=== PATIENT | male | born 1950 | race Caucasian/White ===

== ENCOUNTER → 2017-06-04 | Outpatient (CLI) | payer MEDICARE, OTHER ==
[2017-06-04 09:22] LABS: Blood Urea Nitrogen 19 mg/dL (9-20); Non-African American GFR(MDRD) 55 (>60 ml/min/1.73 sqM)
--- NOTE | 2017-06-04 12:23 | CT ---
EXAMINATION TYPE: CT pelvis w con DATE OF EXAM: 06/04/2017 COMPARISON: NONE INDICATION: Prostate CA DLP: 1090.7 mGycm, Automated exposure control for dose reduction was used. CONTRAST: 80 mL of Visipaque 320. Study performed with Oral Contrast TECHNIQUE: Axial images were obtained from above the iliac crest to the pubic rami FINDINGS: CT PELVIS: Within the [id number] at the inferior pole of the right kidney is a peripelvic cyst. This measures 3.7 cm 11 Hounsfield units. Vascular calcifications within the abdominal aorta. Inferior vena cava is normal. There is some small fusiform prominence of the mid to distal aorta measuring 2.8 cm AP dimension. Loops of bowel within the abdomen and pelvis are normal. There are loops of bowel which are incom pletely distended or lack oral contrast limiting their evaluation. There is made of some diverticular changes without acute diverticulitis within the noncontrast distended sigmoid colon. Appendix: Normal as visualized. Urinary bladder: Normal. Genitourinary structures: Prostate is unremarkable Osseous structures: No suspicious lytic or sclerotic lesions. Facet changes are present. IMPRESSIONS: 1. Diverticulosis without acute diverticulitis. 2. No suspicious pelvic adenopathy. No metastatic lesions within the [id number].
--- NOTE | 2017-06-04 14:46 | NM ---
EXAMINATION TYPE: NM bone scan whole body DATE OF EXAM: 06/04/2017 COMPARISON: NONE HISTORY: Prostate cancer Delayed whole-body scanning was performed following the injection of 28.2 mCi Tc 99m MDP. Images wer e acquired 4 hours post injection. FINDINGS: No suspicious focal uptake is evident. Some degenerative changes are noted at joint spaces including bilateral knees right distal first and second digit and at the elbows and shoulders. IMPRESSION: 1. Degenerative joint changes. No acute osseous abnormality apparent.
== END | disposition home or self-care (01) ==
LOC: RADCTMAIN 08:39
PROVIDERS: ATTEND Urology
DX: C61 Malignant neoplasm of prostate (principal); K57.30 Diverticulosis of large intestine without perforation or abscess without bleeding
CPT/HCPCS: 82565; 84520; 72193; 36415; 78306; A9503; Q9967

== ENCOUNTER 2017-11-26 04:56 | Inpatient (IN) | payer MEDICARE, OTHER ==
[2017-11-26 05:54] LABS: Basophils % (A) 0 %; Eosinophils # (A) 0.1 k/uL (0-0.7); Eosinophils % (A) 1 %; HGB 15.7 gm/dL (13.0-17.5); Lymphocytes # (A) 0.8 k/uL (1.0-4.8); Lymphocytes % (A) 6 %; MCH 32.5 pg (25.0-35.0); MCHC 35.7 g/dL (31.0-37.0); Monocytes # (A) 0.6 k/uL (0-1.0); Monocytes % (A) 5 %; Neutrophils # (A) 10.9 k/uL (1.3-7.7); Neutrophils % (A) 88 %; Platelet Count 375 k/uL (150-450); RBC 4.83 m/uL (4.30-5.90); RDW 14.3 % (11.5-15.5); WBC 12.4 k/uL (3.8-10.6)
[2017-11-26 06:05] LABS: Calcium 10.1 mg/dL (8.4-10.2)
--- NOTE | 2017-11-26 06:44 | ED ---
Psych HPI - General Source: patient Mode of arrival: ambulatory - History of Present Illness MD Complaint: other Onset/Timin -: week(s) Associated Psychiatric Symptoms: depression, homicidal ideation Quality: constant Improves With: none Worsens With: none Associated Symptoms: denies other symptoms <YohannesGabriele ingram - Last Filed: 11/26/17 06:44> <Grant Murcia - Last Filed: 11/26/17 08:58> - General Chief Complaint: Psychiatric Symptoms Stated Complaint: mental health Time Seen by Provider: 11/26/17 05:13 - History of Present Illness Initial Comments: This patient is a 67-year-old man who presents to be evaluated for having homicidal ideation. The patient states that about 3 weeks ago he "fell from Eva with God," and that since that time he has been having repeated thoughts of killing his . Patient describes difficulty with sleeping and loss of appetite associated with this. (Gabriele Buchanan) - Related Data Home Medications Medication Instructions Recorded Confirmed Mirabegron [Myrbetriq] 50 mg PO DAILY 11/26/17 11/26/17 Venlafaxine HCl ER [Effexor Xr] 75 mg PO DAILY 11/26/17 11/26/17 Allergies Allergy/AdvReac Type Severity Reaction Status Date / Time No Known Allergies Allergy Verified 11/26/17 07:23 Review of Systems ROS Other: All systems not noted in ROS Statement are negative. Constitutional: Denies: fever, chills, weakness Eyes: Denies: vision change Respiratory: Denies: cough, dyspnea Cardiovascular: Denies: chest pain, edema, syncope Gastrointestinal: Denies: abdominal pain, vomiting, diarrhea Musculoskeletal: Denies: back pain Skin: Denies: rash Neurological: Denies: headache, weakness Psychiatric: Reports: anxiety, homicidal thoughts <Gabriele Buchanan - Last Filed: 11/26/17 06:44> ROS Other: All systems not noted in ROS Statement are negative. <Grant Murcia - Last Filed: 11/26/17 08:58> ROS Statement: Those systems with pertinent positive or pertinent negative responses have been documented in the HPI. Past Medical History Additional Past Medical History / Comment(s): prostate cancer treatment starting 11/29/17. History of Any Multi-Drug Resistant Organisms: None Reported Past Surgical History: Prostate Surgery Additional Past Surgical History / Comment(s): prostate removed Past Psychological History: Anxiety, Depression Smoking Status: Current every day smoker Past Alcohol Use History: None Reported Past Drug Use History: None Reported <Gabriele Buchanan - Last Filed: 11/26/17 06:44> General Exam Limitations: no limitations General appearance: alert, in no apparent distress Head exam: Present: atraumatic, normocephalic Eye exam: Present: normal appearance Respiratory exam: Present: normal lung sounds bilaterally. Absent: respiratory distress, wheezes, rales, rhonchi, stridor Cardiovascular Exam: Present: regular rate, normal rhythm, normal heart sounds. Absent: systolic murmur, diastolic murmur, rubs, gallop GI/Abdominal exam: Present: soft. Absent: distended, tenderness, guarding, rebound, rigid Extremities exam: Present: normal inspection, normal capillary refill. Absent: pedal edema, calf tenderness Neurological exam: Present: alert, oriented X3 Psychiatric exam: Present: flat affect, homicidal ideation. Absent: agitated, anxious, suicidal ideation Skin exam: Present: warm, dry, intact, normal color. Absent: rash <Gabriele Buchanan - Last Filed: 11/26/17 06:44> Vital Signs 11/26/17 04:59 Temperature 97.7 F Pulse Rate 94 Respiratory 18 Rate Blood Pressure 161/86 O2 Sat by Pulse 99 Oximetry Medical Decision Making - Lab Data Result diagrams: 11/26/17 05:45 11/26/17 05:45 <Gabriele Buchanan - Last Filed: 11/26/17 06:44> - Lab Data Result diagrams: 11/26/17 05:45 11/26/17 05:45 <Grant Murcia - Last Filed: 11/26/17 08:58> - Lab Data Lab Results 11/26/17 11/26/17 Range/Units 05:45 05:45 WBC 12.4 H (3.8-10.6) k/uL RBC 4.83 (4.30-5.90) m/uL Hgb 15.7 (13.0-17.5) gm/dL Hct 44.0 (39.0-53.0) % MCV 91.0 (80.0-100.0) fL MCH 32.5 (25.0-35.0) pg MCHC 35.7 (31.0-37.0) g/dL RDW 14.3 (11.5-15.5) % Plt Count 375 (150-450) k/uL Neutrophils % 88 % Lymphocytes % 6 % Monocytes % 5 % Eosinophils % 1 % Basophils % 0 % Neutrophils # 10.9 H (1.3-7.7) k/uL Lymphocytes # 0.8 L (1.0-4.8) k/uL Monocytes # 0.6 (0-1.0) k/uL Eosinophils # 0.1 (0-0.7) k/uL Basophils # 0.0 (0-0.2) k/uL Sodium 140 (137-145) mmol/L Potassium 4.0 (3.5-5.1) mmol/L Chloride 99 (98-107) mmol/L Carbon Dioxide 26 (22-30) mmol/L Anion Gap 15 mmol/L BUN 13 (9-20) mg/dL Creatinine 1.10 (0.66-1.25) mg/dL Est GFR (CKD-EPI)AfAm 81 (>60 ml/min/1.73 sqM) Est GFR (CKD-EPI)NonAf 70 (>60 ml/min/1.73 sqM) Glucose 130 H (74-99) mg/dL Calcium 10.1 (8.4-10.2) mg/dL TSH 1.740 (0.465-4.680) mIU/L Disposition <Gabriele Buchanan - Last Filed: 11/26/17 06:44> Time of Disposition: 08:58 <Grant Murcia - Last Filed: 11/26/17 08:58> Clinical Impression: Depression, Suicidal ideation Disposition: HOME SELF-CARE Condition: Good Referrals: Grant Forrest MD [Primary Care Provider] - 1-2 days
[2017-11-26] MEDS ORDERED: HALOPERIDOL 5 MG TAB PO STA (07:26)
[2017-11-26 08:50] LABS: Amphetamine Screen,Urine Not Detected (NotDetected); Barbiturate Screen,Urine Not Detected (NotDetected); Benzodiazepines Screen,Urine Not Detected (NotDetected); Cocaine Screen,Urine Not Detected (NotDetected); Methadone Screen, Urine Not Detected (NotDetected); Opiate Screen,Urine Not Detected (NotDetected); Oxycodone Screen, Urine Not Detected (NotDetected); Phencyclidine Screen,Urine Not Detected (NotDetected); Tricyclic Antidepressant,Urine Not Detected (NotDetected); Urn Cannabinoid Scrn Not Detected (NotDetected)
[2017-11-26] MEDS ORDERED: MAGNESIUM HYDROXIDE 2,400 MG/10 ML CUP PO PRN (09:09)
[2017-11-26] MEDS ORDERED: MAG HYDROX/AL HYDROX/SIMETH 30 ML CUP PO PRN (09:09)
[2017-11-26] MEDS ORDERED: ACETAMINOPHEN TAB 325 MG TAB PO PRN (09:09)
[2017-11-26] MEDS ORDERED: HALOPERIDOL LACTATE 5 MG/ML 1 ML VIAL IM PRN (09:17)
[2017-11-26] MEDS ORDERED: HALOPERIDOL 5 MG TAB PO PRN (09:17)
[2017-11-26 10:10] LABS: Appearance,Urine Clear (Clear); Bacteria,Urine Rare /hpf; Bilirubin,Urine Negative (Negative); Blood,Urine Trace (Negative); Color,Urine Yellow; Glucose,Urine (UA) Negative (Negative); Hyaline Casts,Urine 3 /lpf (0-2); Ketones,Urine 1+ (Negative); Leukocyte Esterase,Urine Negative (Negative); Mucus,Urine Moderate /hpf; Nitrite,Urine Negative (Negative); PH, Urine 6.5 (5.0-8.0); Protein,Urine Trace (Negative); RBC,Urine 4 /hpf (0-5); Specific Gravity,Urine 1.013 (1.001-1.035); WBC,Urine 1 /hpf (0-5)
[2017-11-26] MEDS: NICOTINE 14MG/24HR PATCH TRANSDERM SCH (10:48)
--- NOTE | 2017-11-26 11:13 | P.HP ---
Psychiatric H&P - . History & Physical: Allergies Allergy/AdvReac Type Severity Reaction Status Date / Time No Known Allergies Allergy Verified 11/26/17 07:23 Vital Signs Temp 98 F 11/26/17 10:14 Pulse 89 11/26/17 10:14 Resp 16 11/26/17 10:14 BP 158/82 11/26/17 10:14 Pulse Ox 98 11/26/17 10:14 Intake & Output 11/25/17 11/26/17 11/26/17 18:59 06:59 18:59 Weight 103.419 kg Laboratory Last Values WBC 12.4 k/uL (3.8-10.6) H 11/26/17 05:45 RBC 4.83 m/uL (4.30-5.90) 11/26/17 05:45 Hgb 15.7 gm/dL (13.0-17.5) 11/26/17 05:45 Hct 44.0 % (39.0-53.0) 11/26/17 05:45 MCV 91.0 fL (80.0-100.0) 11/26/17 05:45 MCH 32.5 pg (25.0-35.0) 11/26/17 05:45 MCHC 35.7 g/dL (31.0-37.0) 11/26/17 05:45 RDW 14.3 % (11.5-15.5) 11/26/17 05:45 Plt Count 375 k/uL (150-450) 11/26/17 05:45 Neutrophils % 88 % 11/26/17 05:45 Lymphocytes % 6 % 11/26/17 05:45 Monocytes % 5 % 11/26/17 05:45 Eosinophils % 1 % 11/26/17 05:45 Basophils % 0 % 11/26/17 05:45 Neutrophils # 10.9 k/uL (1.3-7.7) H 11/26/17 05:45 Lymphocytes # 0.8 k/uL (1.0-4.8) L 11/26/17 05:45 Monocytes # 0.6 k/uL (0-1.0) 11/26/17 05:45 Eosinophils # 0.1 k/uL (0-0.7) 11/26/17 05:45 Basophils # 0.0 k/uL (0-0.2) 11/26/17 05:45 Sodium 140 mmol/L (137-145) 11/26/17 05:45 Potassium 4.0 mmol/L (3.5-5.1) 11/26/17 05:45 Chloride 99 mmol/L (98-107) 11/26/17 05:45 Carbon Dioxide 26 mmol/L (22-30) 11/26/17 05:45 Anion Gap 15 mmol/L 11/26/17 05:45 BUN 13 mg/dL (9-20) 11/26/17 05:45 Creatinine 1.10 mg/dL (0.66-1.25) 11/26/17 05:45 Est GFR (CKD-EPI)AfAm 81 (>60 ml/min/1.73 sqM) 11/26/17 05:45 Est GFR (CKD-EPI)NonAf 70 (>60 ml/min/1.73 sqM) 11/26/17 05:45 Glucose 130 mg/dL (74-99) H 11/26/17 05:45 Calcium 10.1 mg/dL (8.4-10.2) 11/26/17 05:45 TSH 1.740 mIU/L (0.465-4.680) 11/26/17 05:45 Urine Color Yellow 11/26/17 09:25 Urine Appearance Clear (Clear) 11/26/17 09:25 Urine pH 6.5 (5.0-8.0) 11/26/17 09:25 Ur Specific [place] 1.013 (1.001-1.035) 11/26/17 09:25 Urine Protein Trace (Negative) H 11/26/17 09:25 Urine Glucose (UA) Negative (Negative) 11/26/17 09:25 Urine Ketones 1+ (Negative) H 11/26/17 09:25 Urine Blood Trace (Negative) H 11/26/17 09:25 Urine Nitrite Negative (Negative) 11/26/17 09:25 Urine Bilirubin Negative (Negative) 11/26/17 09:25 Urine Urobilinogen 3.0 mg/dL (<2.0) 11/26/17 09:25 Ur Leukocyte Esterase Negative (Negative) 11/26/17 09:25 Urine RBC 4 /hpf (0-5) 11/26/17 09:25 Urine WBC 1 /hpf (0-5) 11/26/17 09:25 Urine Bacteria Rare /hpf (None) H 11/26/17 09:25 Hyaline Casts 3 /lpf (0-2) H 11/26/17 09:25 Urine Mucus Moderate /hpf (None) H 11/26/17 09:25 Urine Opiates Screen Not Detected (NotDetected) 11/26/17 08:27 Ur Oxycodone Screen Not Detected (NotDetected) 11/26/17 08:27 Urine Methadone Screen Not Detected (NotDetected) 11/26/17 08:27 Ur Propoxyphene Screen Not Detected (NotDetected) 11/26/17 08:27 Ur Barbiturates Screen Not Detected (NotDetected) 11/26/17 08:27 U Tricyclic Antidepress Not Detected (NotDetected) 11/26/17 08:27 Ur Phencyclidine Scrn Not Detected (NotDetected) 11/26/17 08:27 Ur Amphetamines Screen Not Detected (NotDetected) 11/26/17 08:27 U Methamphetamines Scrn Not Detected (NotDetected) 11/26/17 08:27 U Benzodiazepines Scrn Not Detected (NotDetected) 11/26/17 08:27 Urine Cocaine Screen Not Detected (NotDetected) 11/26/17 08:27 U Marijuana (THC) Screen Not Detected (NotDetected) 11/26/17 08:27 11/26/17 11:01 IDENTIFYING DATA: This patient is a 67-year-old male who was admitted to the mental health unit with acute symptoms of psychosis, suicidal and homicidal ideation. HPI: The patient was admitted to the mental health unit stating he had thoughts of killing his . He told me this morning he was going to act on it. Additionally he's been having suicidal thoughts and planned to either hang himself or overdose with medication. Suicidal thoughts have been present for the last 7-10 days. Homicidal ideation began yesterday. I did speak with his however via phone and she indicates even last week he had expressed a thought of harming her. He states he does not want to harm his but continues to have this urge as he is experiencing an auditory hallucination directing suicidal and homicidal ideation. The hallucinations have been present for approximately 7-10 days. He believes he has "fallen from Eva". The auditory hallucination is the devil. He feels depressed hopeless and overwhelmed. He states he has not eaten in 5-6 days and his confirms this. He has been drinking water. His sleep has been erratic. He states he will sleep 2 hours at a time and his energy is quite low. He endorses no hypomanic or manic symptoms. He is endorsing no other specific delusions no ideas of reference. I did speak with the patient's via phone with his permission. She states that he began to act bizarre at the end of October towards the end of their trip in [place]. During the last 2 days he was not eating as much and he was saying "strange things". Upon the return to [place] she states that she told him the holy spirit took his soul. He made other comments that she wouldn't know what the devils like because she doesn't hear him. The patient has been diagnosed with prostate cancer last June he has undergone a prostatectomy. Apparently there was metastasis to lymph nodes and he is scheduled to start radiation at the end of the month. In terms of anxiety symptoms the patient states he's always anxious and has been more severe lately manifesting as panic attacks where he will have shortness of breath heart racing and an impending sense of doom. He states there are no firearms in the home. His states that there is an old hand gun in the house. She is advised to not have firearms in the home. PAST PSYCHIATRIC HISTORY: The patient's second psychiatric admission. The first one was 33 years ago at [facility] for panic and major depression. He states he had no psychosis at that time. He was treated for 2 weeks he believes on lithium. He was released with no follow-up care and he discontinued the lithium. He saw his primary care physician several weeks ago and was started on Effexor XR. This was just titrated to 75 mg daily 1 week ago. He reports no history of suicide attempts and no other trials of psychotropic medication. PMH: Prostate cancer as noted above, overactive bladder treated with Myrbetriq. ALLERGIES: NO KNOWN DRUG ALLERGIES MEDICATIONS: As above CHEMICAL DEPENDENCY HISTORY: He reports no use of alcohol marijuana or any other illicit drugs. He states he's never had any history of abusing those substances. He has never been placed in residential treatment for chemical dependency reasons. FAMILY PSYCHIATRIC HISTORY: None reported, no suicides in the family FAMILY CHEMICAL DEPENDENCY HISTORY: He reports several family members have alcohol use disorder SOCIAL HISTORY: The patient is 67 years old he's been for 45 years she characterizes his marriage as being good. He has 2 children both sons. The patient is a retired dairy cattle farmer. He is a high school education no history of service. Abuse history none reported legal history he states he was arrested for breaking and entering at age 20 and served 2 months in skilled nursing. He is originally from [place], but has resided in [place] for the last 40 years. He resides with his . MENTAL STATUS EXAM: The patient is a male appearing his stated age he has a disheveled appearance he is dressed in hospital attire. He reports a very depressed mood he feels hopeless he has suicidal thoughts. He continues to have thoughts of harming his although he does not want to harm his . He indicates he's been directed to harm himself and her by an auditory hallucination that he believes is the devil. He believes in terms of God he has "fallen from Eva". He is reporting no ideas of reference he is endorsing no thoughts insertion/control. He demonstrates no tangential thinking loose associations or flight of ideas. He described his energy as being low. He does not appear hypomanic or manic. He does have some difficulty retaining information as it is presented to him. He is oriented to person place day month and year. He is able to name the days of the week backwards. He demonstrates no verbal or physical aggressiveness however it was noted he was agitated in the emergency room. He demonstrates no abnormal involuntary movements. Affect appears distraught at times. STRENGTHS/WEAKNESSES: [Strengths: Housing, support from spouse weaknesses: Acute exacerbation of depressive symptoms with psychosis INTELLECTUAL FUNCTIONING: [Average] IMPRESSIONS: [] 1. Psychosis unspecified, rule out major depressive disorder recurrent severe with psychosis, rule out psychosis with an organic etiology versus delirium 2. Prostate cancer status post prostatectomy awaiting radiation treatment for metastasis to lymph nodes PLAN: [The patient has been admitted to the mental health unit he is here voluntarily. We reviewed his presenting symptoms and medication options. We will continue the Effexor XR 75 mg daily I will initiate Risperdal 1 mg at bedtime Ativan 1 mg up to twice daily as needed for anxiety. We will get a CAT scan of his head without contrast as this is new onset of psychosis in a geriatric patient with no identifiable causes of delirium other than history of prostate cancer. He will be seen by internal medicine for routine history and physical exam. Social work will meet with the patient to complete a psychosocial assessment. I spoke at length with the patient's via phone to gain collateral information. We will monitor him for safety we will encourage him to participate in the milieu. Insurer will be ordered as a dietary supplement due to his lack of eating. We will monitor his by mouth intake.
--- NOTE | 2017-11-26 13:03 | CT ---
EXAMINATION TYPE: CT brain wo con DATE OF EXAM: 11/26/2017 COMPARISON: NONE HISTORY: altered mental status CT DLP: 1098.[address] of the brain was performed. The ventricles, basal cisterns and sulci overlying the cerebral convexities demonstrate mild enlargem ent. There is no evidence for intracranial hemorrhage or sulcal effacement. There is decreased attenuation about the periventricular white matter and deep white matter of both c erebral hemispheres, compatible with chronic small vessel ischemia. Differential diagnosis does inclu de demyelination. No mass effects are seen.No midline shift. Osseous calvarium is intact. If symptoms persist consider MRI. IMPRESSION: 1. Age related atrophic and chronic small vessel ischemic change without acute intracranial process s een at this time.
[2017-11-26] MEDS: LORazepam 1 MG TAB PO PRN (16:37)
--- NOTE | 2017-11-26 20:38 | CONS ---
CONSULTATION DATE OF CONSULTATION: 11/26/2017 REASON FOR CONSULTATION: Medical management requested by Dr. Johnson. CONSULTATION: This is a 67-year-old patient of Dr. Forrest who presented to the ER. The patient was having thoughts of killing his and also was having some suicidal thoughts for about a week. It seems that he has also been having some auditory hallucinations directing him for these ideations. It is noted that he felt as if he had fallen from galileo. He has not been eating well, only drinking water, not sleeping well, feels rather disillusioned, has been feeling bizarre from the end of his trip in [place]. He also feels that devils have been taking over. Patient was diagnosed with prostate cancer in June and underwent prostatectomy. The patient is due to start at [facility] radiation treatment shortly. He does feel weak, tired, rundown. Patient has a history of depression previously. The patient has an overactive bladder, for which he uses Myrbetriq. REVIEW OF SYSTEMS: CONSTITUTIONAL: Weak, tired. HEENT: None. RESPIRATORY: Occasional cough. CARDIOVASCULAR: None. GASTROINTESTINAL: None. GENITOURINARY: As above. MUSCULOSKELETAL: None. DERMATOLOGICAL: None. HEMATOLOGICAL: None. LYMPHATICS: None. PSYCHIATRY: As above. NEUROLOGICAL: None. PAST MEDICAL HISTORY: 1. Prostate cancer with prostatectomy. 2. Depression. PAST SURGICAL HISTORY: Prostatectomy. SOCIAL HISTORY: Patient is smoking about half a pack a day, more so. Has smoked for many years. Patient is a retired jones. Lives with his . Denies alcohol. FAMILY HISTORY: Reviewed; noncontributory to presentation. HOME MEDICATIONS: 1. Effexor XR 75 mg p.o. daily. 2. Myrbetriq 50 mg p.o. daily. ALLERGIES: NONE. PHYSICAL EXAMINATION: Temperature 97.2, pulse 89, respiration 16, blood pressure 138/90, pulse ox 99% on room air. GENERAL APPEARANCE: Average build. Sitting up. Somewhat disheveled. EYES: Pupils equal. Conjunctivae normal. HEENT: External appearance of nose and ears normal. Oral cavity normal. NECK: JVD not raised. Mass not palpable. RESPIRATORY: Effort normal. LUNGS: Diminished breath sounds. CARDIOVASCULAR: First and second sounds normal. No edema. ABDOMEN: Soft, nontender. Liver and spleen not palpable. LYMPHATIC: No lymph node palpable in neck or axillae. PSYCHIATRY: Patient is answering questions. More details on psychiatry evaluation. NEUROLOGICAL: Pupils equal. Cranial nerves grossly intact. Power and sensation grossly intact. INVESTIGATIONS: White count 12.4, hemoglobin 15.7, potassium 4.0. Urine drug screen negative. CT scan of the brain shows some age-related atrophic changes. ASSESSMENT: 1. Metastatic prostate cancer with prostatectomy a few months ago. Now patient is due for radiation treatment. 2. Acute insomnia from underlying psychiatric disorder. 3. Psychosis. 4. Depression not otherwise specified. 5. Mild leukocytosis. No evidence of infection currently. 6. Chronic nicotine dependence. Patient is a cigarette smoker. 7. Essential hypertension. PLAN: At this point, we will put the patient on a nicotine patch, start the patient on lisinopril/hydrochlorothiazide. Radiation center is closed on the weekend. Will probably contact them on Wednesday morning. Care was discussed with the patient. Thank you, Dr. Johnson. MMZIYADL / LUCASN: [id number] /
[2017-11-26] MEDS: LISINOPRIL-HCTZ 10-12.5 MG 1 EACH TAB PO SCH (21:00)
[2017-11-26] MEDS: risperiDONE 1 MG TAB PO SCH (21:00)
[2017-11-27] MEDS: NICOTINE 14MG/24HR PATCH TRANSDERM SCH (08:43)
[2017-11-27] MEDS: LISINOPRIL-HCTZ 10-12.5 MG 1 EACH TAB PO SCH (08:46)
[2017-11-27] MEDS ORDERED: VENLAFAXINE HCL ER 75 MG CAP PO SCH (09:00)
--- NOTE | 2017-11-27 11:58 | P.PN ---
Progress Note - Text Progress Note Date: 11/27/17 Patient was seen for a follow-up examination and I'm covering for Dr. Johnson. Patient reports that he is doing better on his medication, he can sleep better, the voices and his guilt feelings are almost gone, and does not want to kill his or anybody else etc. He wants to speak with his compliance engineer about all these things when he gets home. He feels somewhat tired and sleeps a lot since he took the medications. He was counseled about it and it was agreed to decrease the medication tomorrow or day after if he continues to feel tired since he was just started on these medications and had only 1 day of medication so far. He agreed with this. Does not have any other specific adverse effects. This is a white ambulatory male who is poorly combed and unshaven. He is polite friendly and cooperative. He does not show any psychomotor agitation or retardation. His speech is spontaneous relevant and goal-directed. His mood is mildly anxious and affect is somewhat increased in intensity. He denies suicide and homicide thoughts. He denies hallucinations and delusional thinking except about his feeling of falling out of Eva from God and hearing voices of the devil in the past. He is well oriented with adequate memory concentration etc. His insight and judgment appear to be improving. Plan: Continue Effexor and risperidone and other therapies.
[2017-11-27] MEDS ORDERED: SODIUM CHLORIDE 0.9% 500 ML IV ONE (15:34)
[2017-11-27] MEDS ORDERED: SODIUM CHLORIDE 0.9% 1,000 ML IV ONE (15:45)
--- NOTE | 2017-11-27 15:59 | P.PN ---
Progress Note - Text Progress Note Date: 11/27/17 Patient's blood pressure is low and is getting IV fluids to correct it. Hypotension is listed as a rapid adverse effect from Effexor or in the PDR. In view of this I will discontinue Effexor and observing him.
[2017-11-27] MEDS: risperiDONE 1 MG TAB PO SCH (20:21)
[2017-11-27] MEDS: SODIUM CHLORIDE 0.9% 1,000 ML IV SCH (22:52)
[2017-11-28] MEDS: SODIUM CHLORIDE 0.9% 1,000 ML IV SCH (01:32)
[2017-11-28] MEDS: NICOTINE 14MG/24HR PATCH TRANSDERM SCH (08:04)
[2017-11-28 10:02] VITALS: BMI 29.5
[2017-11-28] MEDS: LORazepam 1 MG TAB PO PRN (14:52)
--- NOTE | 2017-11-28 15:59 | P.PN ---
Progress Note - Text Progress Note Date: 11/28/17 Patient was seen for a follow-up examination. He is fully ambulatory today and feels lot better. He does not feel tired. He is attending groups and actively participates. His Effexor was stopped yesterday and he did not get any this morning. His blood pressure is getting better and he can walk freely. His IV fluids were discontinued. This is a white ambulatory male with adequate hygiene. He is polite and cooperative. He does not show any psychomotor agitation or retardation. His speech is spontaneous relevant and goal-directed. His mood is euthymic to cheerful and affect is appropriate to the thought content. He denies suicidal and homicidal ideas. He denies hallucinations and delusional thinking. Apparently his talk to their supply chain specialist about him coming to see the patient here in the unit. Apparently he made some remarks which they did not like and so they're going to attend different quaker and see a different supply chain specialist. He is well oriented with good memory concentration etc. Plan: Continue risperidone, groups and other activities.
[2017-11-28] MEDS: risperiDONE 1 MG TAB PO SCH (20:50)
--- NOTE | 2017-11-29 00:27 | PN ---
PROGRESS NOTE DATE OF SERVICE: 11/28/2017. PRESENTING COMPLAINT: Low blood pressure. INTERVAL HISTORY: This is a patient admitted to the psych unit with psychosis. Blood pressure is running rather low yesterday. I gave the patient a fluid bolus. Overall feeling much better after that. Tolerating a diet, up and about. No dizziness. No lightheadedness. REVIEW OF SYSTEMS: Done for constitutional, cardiovascular, GI, pulmonary; relevant findings as above. CURRENT MEDICATIONS: Reviewed. Given IV fluids and that was discontinued. PHYSICAL EXAMINATION: Temperature 98.8, pulse 83, respirations 16, blood pressure up to 102/66. GENERAL APPEARANCE: Sitting up, comfortable. EYES: Pupils equal. Conjunctivae are normal. HEENT: External appearance of nose and ears normal. Oral cavity normal. NECK: JVD not raised. Mass not palpable. Respiratory effort normal. LUNGS: Decreased breath sounds. CARDIOVASCULAR: First and seconds sounds, no edema. ABDOMEN: Soft, nontender. Liver and spleen not palpable. PSYCHIATRY: Awake, answering simple questions. INVESTIGATIONS: No new blood work today. ASSESSMENT: 1. Hypotension responded to IV fluids. 2. Acute insomnia from underlying psychotic disorder. 3. Psychosis. 4. Depression, not otherwise specified. 5. Chronic nicotine dependence. The patient is an ex-cigarette smoker. PLAN: Continue medication and treatment plan. Hypotension is actually doing better. The patient encouraged to increase oral intake. Radiation will be consulted who are following the patient for prostate radiation. We will also order a PSA for the morning. MMODL / IJN: [id number] /
[2017-11-29] MEDS: NICOTINE 14MG/24HR PATCH TRANSDERM SCH (08:39)
--- NOTE | 2017-11-29 10:00 | P.PN ---
Progress Note - Text Interval history: The patient is found at the front office attendant he follows me to an interview room. He reports he feels much better. He states that he was struggling with an obsessive thought that his spirit had been taken from his body. He reported he was previously hearing the voice of the devil. He states he is no longer hearing that he no longer feels he is having any non-objective thinking. He reports sleeping 8 hours last night. His appetite is improving. He states he is eating whatever he can but he doesn't particular care for the food here. His family did visit over the weekend he felt that went well. It appears his blood pressure had dropped. The covering physician assumed it was the Effexor and discontinued Effexor. The patient however is been on Effexor XR for approximately one to 2 weeks prior to this admission without that side effect. It is more likely that the Risperdal calls the hypotension or the use of Ativan. This did also occur in the context of him not eating for almost a week. We discussed options in terms of antidepressant management and the patient feels comfortable resuming the Effexor XR. Mental status exam: The patient is alert he is a disheveled appearance hygiene is adequate. He is friendly and cooperative he remains seated in the chair calmly. He reports his mood is much improved. He is reporting no suicidal or homicidal ideation intent or plan. He specifically states he has no thoughts or desire to harm his . He is endorsing no auditory or visual hallucinations. He is endorsing no specific delusions today. In particular he reports no confucianism type delusions and he does not feel persecuted. Insight and judgment improving. He demonstrates no verbal or physical aggressiveness. Affect is brighter he demonstrates appropriate use of humor and smiling. He is oriented to person place and date. Plan: The patient's will continue on the Risperdal however we will reduce the dose to 0.5 mg at bedtime. Effexor XR be restarted 75 mg daily. Ativan will be continued as needed. We will monitor for hypotension. He is encouraged to participate in the milieu and we will monitor his by mouth intake. Social work will be in contact with the patient's spouse. We will assess his safety risk daily. He may be appropriate for discharge as soon as one to 2 days depending on his progress. Dr. Pedro Serrato has been following from internal medicine. A PSA has been ordered. Nursing will contact Dr. Richard's office for any further recommendation.
[2017-11-29] MEDS: VENLAFAXINE HCL ER 75 MG CAP PO SCH (10:26)
[2017-11-29] MEDS: LORazepam 1 MG TAB PO PRN ×2 (12:08→20:59)
[2017-11-29] MEDS ORDERED: risperiDONE 0.5 MG TAB PO SCH (21:00)
[2017-11-30 06:09] VITALS: BP 132/79; PULSE 75; RESP 14; TEMP 98.2
[2017-11-30] MEDS: VENLAFAXINE HCL ER 75 MG CAP PO SCH (08:22)
[2017-11-30] MEDS: NICOTINE 14MG/24HR PATCH TRANSDERM SCH (08:22)
--- NOTE | 2017-11-30 09:37 | P.DS ---
Providers Date of admission: 11/26/17 09:03 Expected date of discharge: 11/30/17 Attending physician: Bassam Johnson Consults: 11/26/17 09:09 Consult Physician Routine Consulting Provider: Cory Nguyen Consult Reason/Comments: H&P, with medical followup Do you want consulting provider notified?: Yes Primary care physician: Ryan Forrest - Discharge Diagnosis(es) (1) Psychosis Current Visit: Yes Status: Acute Priority: High (2) Depression Current Visit: Yes Status: Acute Priority: Medium Hospital Course: Brief summary of admission note: This patient is a 67-year-old male who was admitted to the mental health unit through the emergency room with symptoms of psychosis suicidal ideation and homicidal ideation. He had presented stating he had thoughts of killing his although this was not something he wanted to do. He endorsed auditory hallucinations from the devil. He felt that his spirit had been stolen from his body and he had "fallen from Eva". He had gone several days without eating and his sleep had been impaired. For full details please refer to my psychiatric evaluation dated . Summary of hospital course: The patient was admitted to the mental health unit he did sign in voluntarily. We reviewed his presenting symptoms and medication options. He was continued on Effexor XR 75 mg daily Risperdal was initiated 1 mg at bedtime Ativan was used as needed for acute anxiety. In terms of psychotic symptoms those cleared very quickly with use of Risperdal. Over the weekend the covering physician was concerned the Effexor had caused a drop in blood pressure however the patient had arty been on that for approximate 2 weeks. It was more likely that the Risperdal dose had caused a hypotension. The Effexor was restarted and the Risperdal was reduced to 0.5 mg at bedtime. The patient attended groups he demonstrated no agitated behavior he demonstrated significant improvement over the last several days. His visited him over the weekend and indicated to social work that he was much improved. At the time of admission I did have a phone conversation with his to gather collateral information. The patient was seen by internal medicine for routine history and physical exam and further follow-up visits. We did do a CAT scan as this appeared to be new onset psychosis. The CAT scan was negative for any acute process. Mental status exam: The patient is alert he is dressed in his own clothing hygiene grooming are good. Eye contact is appropriate. Speech is fluent and spontaneous nonpressured. He is reporting no suicidal or homicidal ideation intent or plan. Specifically he states he has no thoughts of harming his . Again he clarifies that although he had those thoughts he never wanted to harm his . He is endorsing no auditory or visual hallucinations. He specifically denies experiencing any command auditory hallucinations. He is endorsing no feelings of paranoia or persecution. He feels safe here and he expects he will feel safe at home. He spontaneous states that if he doesn't feel safe he will return to the hospital. He demonstrates no tangential thinking loose associations or flight of ideas. He does not appear hypomanic or manic. He demonstrates no verbal or physical aggressiveness. He demonstrates no abnormal involuntary movements. He continues to be oriented to person place and date. Affect is appropriately expressive and appears more euthymic. Impressions 1. Psychosis and specified, rule out delirium versus major depressive disorder recurrent severe with psychosis 2. Prostate cancer with metastasis to lymph nodes Plan: The patient will be discharged from the mental health unit to return home residing with his today. He will continue on Effexor XR 75 mg daily, Risperdal 0.5 mg at bedtime, Ativan 1 mg up to daily as needed. There is no imminent safety risk he is appropriate for transition back to outpatient care. His symptoms of psychosis have resolved he is endorsing no thoughts of harming himself or others. He is instructed to return to the hospital any acute safety concerns. He will follow-up with his oncology team to proceed with radiation treatment. Social work will arrange his outpatient mental health follow-up. The Risperdal will likely only be needed temporarily but he will continue until he follows with another home therapy clinician. The patient was not utilizing nicotine patches here in the mental health unit. He does not want to have them prescribed to him. He states he will quit smoking "cold turkey". Patient Condition at Discharge: Stable Plan - Discharge Summary Discharge Rx Participant: No New Discharge Prescriptions: New LORazepam [Ativan] 1 mg PO DAILY PRN #10 tab PRN Reason: Anxiety risperiDONE [RisperDAL] 0.5 mg PO HS #30 tab Venlafaxine HCl ER [Effexor XR] 75 mg PO DAILY #30 cap.er.24h Continue Mirabegron [Myrbetriq] 50 mg PO DAILY Discontinued Venlafaxine HCl ER [Effexor Xr] 75 mg PO DAILY Discharge Medication List Mirabegron [Myrbetriq] 50 mg PO DAILY 11/26/17 [History] LORazepam [Ativan] 1 mg PO DAILY PRN #10 tab 11/30/17 [Rx] Venlafaxine HCl ER [Effexor XR] 75 mg PO DAILY #30 cap.er.24h 11/30/17 [Rx] risperiDONE [RisperDAL] 0.5 mg PO HS #30 tab 11/30/17 [Rx] Follow up Appointment(s)/Referral(s): intake,intake [Other] - 12/01/17 11:15 am Grant Forrest MD [Primary Care Provider] - 1-2 days Activity/Diet/Wound Care/Special Instructions: Activity and diet as tolerated. Avoid the use of street drugs and alcohol. Remove all firearms from the home. Take all medications as prescribed. Follow up with you Primary Care provider in 1-2 days. When you are in need of refills on your medications please contact your medical provider and/or outpatient psychiatrist to have this done. Please go to scheduled outpatient appointment for aftercare. If symptoms return or become worse call the crisis line at [phone] and/or go to the nearest emergency room for an evaluation.
== END 2017-11-30 11:30 | disposition home or self-care (01) | DRG 885 ==
LOC: EC 04:56 → 3MHU 09:03
PROVIDERS: ADMIT Psychiatry & Neurology Psychiatry; ATTEND Psychiatry & Neurology Psychiatry
DX: F33.3 Major depressive disorder, recurrent, severe with psychotic symptoms (principal); C77.9 Secondary and unspecified malignant neoplasm of lymph node, unspecified; I95.9 Hypotension, unspecified; R45.851 Suicidal ideations; R63.0 Anorexia; R45.850 Homicidal ideations; N32.81 Overactive bladder; F41.0 Panic disorder [episodic paroxysmal anxiety]; F17.210 Nicotine dependence, cigarettes, uncomplicated; I10 Essential (primary) hypertension; G47.00 Insomnia, unspecified; F29 Unspecified psychosis not due to a substance or known physiological condition; Z85.46 Personal history of malignant neoplasm of prostate; Z90.79 Acquired absence of other genital organ(s); Z79.899 Other long term (current) drug therapy
CPT/HCPCS: 36415; 70450; 80048; 80306; 81001; 82075; 84153; 84443; 85025; 99285

== ENCOUNTER → 2017-12-28 | Outpatient (CLI) | payer MEDICARE, OTHER ==
--- NOTE | 2017-12-28 15:59 | CT ---
EXAMINATION TYPE: CT pelvis w con DATE OF EXAM: 12/28/2017 COMPARISON: CT pelvis June 04, 2017 HISTORY: Follow up prostate cancer CT DLP: 1034.5 mGycm Automated exposure control for dose reduction was used. CONTRAST: Performed with IV Contrast, patient injected with 100 mL of Isovue 300. FINDINGS: Prostate is not visualized and suspected surgically absent though no distinct surgical clips are note d. No new suspicious pelvic adenopathy is seen. There are prominent but subcentimeter bilateral groin lymph nodes redemonstrated. There is no suspicious small or large bowel dilatation. Normal-appearing appendix is seen from cecum right upper pelvis There is redemonstration of oval 3.6 cm low dense lesion lower pole level right ki dney favoring simple cyst on axial image 4 series 3. There is moderate to severe calcified plaque in distal bowel aorta extending into pelvic branch vessels. Visualized osseous structures are intact. Fa cet arthropathy lower lumbar levels is redemonstrated. No suspicious focal lytic or sclerotic lesions are present. No pelvic fluid is noted. IMPRESSION: NO NEW SUSPICIOUS MASS OR ADENOPATHY IS SEEN TO SUGGEST MALIGNANT RECURRENCE.
== END | disposition home or self-care (01) ==
LOC: RADCTMAIN 13:13
PROVIDERS: ATTEND Radiology Radiation Oncology
DX: C61 Malignant neoplasm of prostate (principal)
CPT/HCPCS: 82565; 84520; 72193; Q9967

== ENCOUNTER → 2018-02-11 | Outpatient (CLI) | payer MEDICARE, OTHER | END | disposition home or self-care (01) | LOC: LABWHC1 11:07 | PROVIDERS: ATTEND Radiology Radiation Oncology | DX: C61 Malignant neoplasm of prostate (principal) | CPT/HCPCS: 36415; 84153 ==

== ENCOUNTER 2018-09-22 08:20 | Day surgery (SDC) | payer MEDICARE, OTHER ==
[2018-09-20 12:32] VITALS: BMI 35.4
[~2018-09-22 08:20] MED LIST: LACTATED RINGERS 1,000 ML IV SCH; LIDOCAINE 1% 20 ML VIAL (10MG/ML) FOR IV START INTRADERMA PRN
[2018-09-22 09:02] VITALS: RESP 16; TEMP 97.4
[2018-09-22] MEDS ORDERED: PROPOFOL 10 MG/ML 20 ML VIAL IV ONE (09:47)
[2018-09-22] MEDS ORDERED: LIDOCAINE 1% INJ 10MG/ML (20 ML MDV) ONE (09:47)
--- NOTE | 2018-09-22 10:23 | P.PCN ---
Date of Procedure: 09/22/18 Procedure(s) Performed: Procedure: Colonoscopy and biopsy. Preoperative diagnosis: Screening or neoplasia. Postoperative diagnosis: 1. Poor preparation with no obvious large polyps or cancer. 2. Small flat polyp in the proximal sigmoid biopsied but was not snared because of his poor prep. 3. No large polyps or cancer. Preparation: HalfLytely prep. Sedation: Was provided by anesthesia. Brief clinical history: The patient is a 68-year-old male who is scheduled for this evaluation for screening for neoplasia age being his risk factor. He had history of prostate cancer and he had surgery and radiation treatment last year. The patient has no overt bleeding but, apparently, had a positive cologuard test. No family history of colon cancer. This would be his first colonoscopy. Procedure: With the patient on his left lateral decubitus position and after informed consent and adequate sedation, the perianal area was inspected and it did not show any fissures or fistulas. There were no masses felt on digital rectal examination. The Olympus CFH 190L video colonoscope was then inserted in the rectum in the usual fashion and advanced to the cecum. The preparation, unfortunately, was poor and things did not clear despite lengthy cleansing which I performed. There was an elongated small flat polypoid area in the proximal sigmoid consistent with a benign polyp which I biopsied but there were no large polyps or cancer or any spontaneous bleeding or obvious diverticular disease. I retroflexed the endoscope in the rectum before the endoscope was withdrawn. The patient tolerated the procedure well. Plan: The patient was briefed about the findings of this exam. Will await pathology results. I anticipate repeating this exam in around 2 years after a 2 day prep. Sooner depending on the pathology results. He will follow up with you as planned.
[2018-09-22 10:32] VITALS: BP 143/72; PULSE 66
== END 2018-09-22 11:06 | disposition home or self-care (01) ==
LOC: ORWHC2ENDO 08:20
DX: Z12.11 Encounter for screening for malignant neoplasm of colon (principal); D12.5 Benign neoplasm of sigmoid colon; F41.9 Anxiety disorder, unspecified; F32.9 Major depressive disorder, single episode, unspecified; Z85.46 Personal history of malignant neoplasm of prostate; Z87.891 Personal history of nicotine dependence; Z79.82 Long term (current) use of aspirin; Z79.899 Other long term (current) drug therapy; Z90.79 Acquired absence of other genital organ(s); Z92.3 Personal history of irradiation
CPT/HCPCS: 88305; 45380; J2001; J2704

== ENCOUNTER → 2019-01-24 | Outpatient (CLI) | payer MEDICARE, OTHER | END | disposition home or self-care (01) | LOC: LABWHC1 10:38 | PROVIDERS: ATTEND Urology | DX: C61 Malignant neoplasm of prostate (principal); M81.8 Other osteoporosis without current pathological fracture | CPT/HCPCS: 36415; 82310; 84153; 84403 ==

== ENCOUNTER → 2019-11-14 | Outpatient (CLI) | payer MEDICARE, OTHER ==
[2019-11-14 15:45] LABS: Potassium 4.5 mmol/L (3.5-5.1)
[2019-11-14 17:22] LABS: Basophils % (A) 1 %; Eosinophils # (A) 0.1 k/uL (0-0.7); Eosinophils % (A) 1 %; HGB 13.4 gm/dL (13.0-17.5); Lymphocytes # (A) 0.8 k/uL (1.0-4.8); Lymphocytes % (A) 14 %; MCH 32.8 pg (25.0-35.0); MCHC 32.7 g/dL (31.0-37.0); MCV 100.2 fL (80.0-100.0); Macrocytosis Slight; Mean Platelet Volume 8.1; Monocytes # (A) 0.4 k/uL (0-1.0); Monocytes % (A) 7 %; Neutrophils # (A) 4.4 k/uL (1.3-7.7); Neutrophils % (A) 75 %; Platelet Count 288 k/uL (150-450); RBC 4.09 m/uL (4.30-5.90); RDW 14.2 % (11.5-15.5); WBC 5.8 k/uL (3.8-10.6)
== END | disposition home or self-care (01) ==
LOC: LABPAT 14:28
PROVIDERS: ATTEND Surgery
DX: Z01.812 Encounter for preprocedural laboratory examination (principal); I74.3 Embolism and thrombosis of arteries of the lower extremities; I73.9 Peripheral vascular disease, unspecified
CPT/HCPCS: 36415; 80051; 82565; 82947; 85025

== ENCOUNTER 2019-11-21 06:02 | Day surgery (SDC) | payer MEDICARE, OTHER ==
[~2019-11-21 06:02] MED LIST changes: +ALPRAZolam 0.25 MG TAB PO PRN; +ALPRAZolam 0.5 MG TAB PO PRN; -LACTATED RINGERS 1,000 ML IV SCH; -LIDOCAINE 1% 20 ML VIAL (10MG/ML) FOR IV START INTRADERMA PRN; +SODIUM CHLORIDE 0.9% 1,000 ML in EMPTY BAG 1 BAG IV ONE
[2019-11-21 06:27] VITALS: TEMP 97.9
[2019-11-21 06:28] VITALS: RESP 16
[2019-11-21] MEDS ORDERED: ASPIRIN 325 MG TAB PO ONE (07:00)
[2019-11-21] MEDS ORDERED: LIDOCAINE 1% INJ 10MG/ML (20 ML MDV) SQ ONE (07:41)
[2019-11-21] MEDS ORDERED: MIDAZOLAM 2 MG/2 ML VIAL IV ONE (07:45)
[2019-11-21] MEDS ORDERED: IOPAMIDOL-250 100ML BTL INTRAARTER ONE (08:10)
--- NOTE | 2019-11-21 08:53 | IR ---
EXAMINATION TYPE: IR angio abdominal w runoff DATE OF EXAM: 11/21/2019 CLINICAL HISTORY: Peripheral vascular disease. TECHNIQUE: Fluoroscopy. COMPARISON: None. FINDINGS: Fluoroscopic guidance was provided during abdominal angiogram with lower extremity runoff procedure performed by Dr. Zamora. A total of 1.3 minute of fluoroscopic time was utilized during t he procedure and two cine runs are acquired. Images acquired show access via left groin with subseque nt abdominal angiogram and lower extremity runoff images saved. Please refer to procedure note for fu rther details if necessary as I was not present nor performed procedure. IMPRESSION: As Above.
[2019-11-21 10:13] VITALS: BP 153/70; PULSE 63
--- NOTE | 2019-11-21 10:15 | P.OP ---
Date of Procedure: 11/21/19 Indications for Procedure: 69-year-old gentleman with history of bilateral lower extremity claudication resented to the office with significant increase in pain consistent of worsening claudication. Patient states he is unable to walk more than 50 feet without significant pain and cramping of his calf on the right which is worse than the left. He underwent arterial Dopplers which demonstrated a markedly decrease in ABIs on the right lower extremity from 0.8 to .6 and therefore he presents today for aortogram with runoff. Description of Procedure: Preoperative diagnosis: Disabling claudication bilateral lower extremities [place] classification 3 Postop diagnosis: Disabling claudication [place] classification 3, bilateral SFA BRIM BUSTER's, infrarenal abdominal aortic aneurysm Procedure: Aortogram with bilateral lower extremity runoffs via left common femoral artery access under ultrasound guidance Surgeon: Noah Anesthesia: Moderate sedation times 20 minutes Estimated blood loss: 5 mL Complications: None Condition: Stable Findings: Aorta: Mild atherosclerotic disease with dilation consistent of a small aneurysm. Bilateral renal arteries were patent without any significant disease. Iliacs: Bilateral common iliac arteries were patent without significant athe rosclerotic disease and no evidence of severe stenosis. External iliac artery on the right demonstrated some mild stenosis approximately 20-30%. Left external iliac artery was patent with mild atherosclerotic disease. Bilateral internal iliac arteries are patent without any significant stenosis. Femorals: Bilateral common femoral arteries, profundus femoris arteries are patent with mild atherosclerotic disease no evidence of stenosis. Bilateral superficial femoral arteries are occluded after the takeoff and reconstitute at the above-knee popliteal just distal to Eren's canal. There is significant calcification noted throughout the bilateral superficial femoral arteries. Popliteal: Bilateral popliteal arteries are patent with mild atherosclerotic and calcific disease. There is no evidence of stenosis. Tibials: Bilateral tibioperoneal trunks are patent with mild atherosclerotic disease. Three-vessel takeoff bilaterally with two-vessel runoff to the ankle bilaterally. Operative narrative: After written informed consent was obtained the patient all risks benefits competitions were described the patient is brought to the Taxicab Driver and laid in a supine position. The area of the groin was prepped and draped in the usual sterile fashion. Local anesthesia with moderate sedation was performed with continuous pulse ox monitoring and EKG monitoring. Utilizing ultrasound the left common femoral artery was visualized and shown to be patent without any significant plaque. Utilizing a multipurpose needle under ultrasound guidance the artery was accessed. Guidewire was placed followed by 5-Syriac sheath. 035 Glidewire was then placed into the aorta followed by pigtail catheter. Angiogram was then obtained of the aorta. Catheter was then placed at the bifurcation and lower extremity runoffs were obtained. Once completed all guidewires, catheters and sheaths were removed and pressure was placed for hemostasis. Patient tolerated procedure well was sent to PACU for re covery Plan - Discharge Summary Discharge Rx Participant: No New Discharge Prescriptions: No Action RX: LORazepam [Ativan] 1 mg PO DAILY PRN #10 tab PRN Reason: Anxiety Aspirin EC [Ecotrin Low Dose] 81 mg PO DAILY risperiDONE [RisperDAL] 0.5 mg PO HS Venlafaxine HCl [Effexor] 75 mg PO HS Atorvastatin [Lipitor] 40 mg PO HS Discharge Medication List RX: LORazepam [Ativan] 1 mg PO DAILY PRN #10 tab 11/30/17 [Rx] Aspirin EC [Ecotrin Low Dose] 81 mg PO DAILY 09/20/18 [History] Atorvastatin [Lipitor] 40 mg PO HS 11/20/19 [History] Venlafaxine HCl [Effexor] 75 mg PO HS 11/20/19 [History] risperiDONE [RisperDAL] 0.5 mg PO HS 11/20/19 [History] Follow up Appointment(s)/Referral(s): Gabriele Zamora DO [STAFF PHYSICIAN] - 11/28/19 3:30 pm Patient Instructions/Handouts: Angiogram (DC) Activity/Diet/Wound Care/Special Instructions: No heavy lifting/pushing/pulling greater than 10 lbs for 3 days. Avoid frequent up/down full flight of stairs for 2 days. You may shower tomorrow, but no soaking in water for 3 days (such as swim or tub). You may drive Thurs.
== END 2019-11-21 12:20 | disposition home or self-care (01) ==
LOC: CATHCVL 06:02
PROVIDERS: ATTEND Surgery
DX: I70.213 Atherosclerosis of native arteries of extremities with intermittent claudication, bilateral legs (principal); I71.4 Abdominal aortic aneurysm, without rupture; I70.0 Atherosclerosis of aorta; I70.8 Atherosclerosis of other arteries; C61 Malignant neoplasm of prostate; Z79.82 Long term (current) use of aspirin; Z98.890 Other specified postprocedural states; Z87.891 Personal history of nicotine dependence; Z82.49 Family history of ischemic heart disease and other diseases of the circulatory system
CPT/HCPCS: 36200; 75625; 75716; C1769 ×3; C1894; J2250; J2001; Q9966

== ENCOUNTER → 2020-04-19 | Outpatient (CLI) | payer MEDICARE, OTHER | END | disposition home or self-care (01) | LOC: LABWHC1 11:44 | PROVIDERS: ATTEND Radiology Radiation Oncology | DX: C61 Malignant neoplasm of prostate (principal); Z92.3 Personal history of irradiation; C77.9 Secondary and unspecified malignant neoplasm of lymph node, unspecified | CPT/HCPCS: 36415; 84153 ==

== ENCOUNTER → 2020-04-30 | Day surgery (SDC) | payer MEDICARE, OTHER ==
[2020-04-23 10:04] VITALS: BMI 34.9
[~2020-04-30] MED LIST changes: -ALPRAZolam 0.25 MG TAB PO PRN; -ALPRAZolam 0.5 MG TAB PO PRN; +IOPAMIDOL-250 100ML BTL INTRAARTER ONE; +LIDOCAINE 1% INJ 10MG/ML (20 ML MDV) SQ ONE; +PROTAMINE SULFATE 10 MG/ML 5 ML VIAL IV ONE
[2020-04-30 08:19] VITALS: TEMP 97.8
[2020-04-30 08:27] LABS: Basophils % (A) 0 %; Eosinophils # (A) 0.1 k/uL (0-0.7); Eosinophils % (A) 2 %; HCT 40.3 % (39.0-53.0); HGB 13.3 gm/dL (13.0-17.5); Lymphocytes # (A) 0.9 k/uL (1.0-4.8); Lymphocytes % (A) 13 %; MCH 32.8 pg (25.0-35.0); MCHC 33.1 g/dL (31.0-37.0); MCV 99.1 fL (80.0-100.0); Macrocytosis Slight; Mean Platelet Volume 7.7; Monocytes # (A) 0.4 k/uL (0-1.0); Monocytes % (A) 7 %; Neutrophils % (A) 75 %; Platelet Count 330 k/uL (150-450); RBC 4.07 m/uL (4.30-5.90); RDW 14.6 % (11.5-15.5); WBC 6.7 k/uL (3.8-10.6)
[2020-04-30 08:35] LABS: Calcium 9.3 mg/dL (8.4-10.2); Potassium 4.9 mmol/L (3.5-5.1)
[2020-04-30] MEDS: fentaNYL (PF) 50 MCG/ML 2 ML AMP IV ONE ×3 (08:45→09:42)
[2020-04-30] MEDS: MIDAZOLAM 2 MG/2 ML VIAL IV ONE ×2 (08:45→08:51)
--- NOTE | 2020-04-30 10:36 | P.OP ---
Date of Procedure: 04/30/20 Preoperative Diagnosis: Right lower extremity claudication with SFA occlusion Postoperative Diagnosis: Same Procedure(s) Performed: 1. Ultrasound-guided left common femoral artery access 2. Selective right lower extremity iliofemoral, femoral-popliteal angiograms 3. Failed attempt to revascularize right SFA occlusion Anesthesia: local, other (Conscious sedation 75 minutes) Surgeon: Gabriele Zamora Estimated Blood Loss (ml): 5 Pathology: none sent Condition: stable Disposition: other (outpatient) Indications for Procedure: 69-year-old with history of bilateral lower extremity claudication at 50 feet presents to the hospital for revascularization of the right lower extremity. Previously he underwent aortogram with runoff demonstrating chronic total occlusion of the right superficial femoral artery with reconstitution of the above-knee popliteal. There is dense calcification on the angiogram and when discussed with the patient options including bypass versus atherectomy and angioplasty with possible stenting he chose the latter. He presents today for his intervention. Operative Findings: Densely calcified chronic total occlusion of the SFA just after the takeoff with above-knee reconstitution Description of Procedure: After written informed consent was obtained the patient all risks benefits competitions were described the patient is brought to the Solutions Architect Consultant and laid in a supine position. The area of the groins were prepped and draped in usual sterile fashion. Seizure was performed under conscious sedation which was administered per the registered nurse and continued pulse ox and EKG monitoring was performed. Utilizing ultrasound the left common femoral artery was visualized shown to have some calcification but otherwise patent. Utilizing ultrasound and a multipurpose needle as well as Seldinger technique a 6-Spanish sheath was placed in normal fashion. 035 Glidewire was then placed into the aorta followed by a rim catheter and the right common iliac and common femoral artery were accessed with the 035 wire advantage. A 7-Spanish up and over sheath was then placed into the common femoral artery on the right. Right lower extremity iliofemoral and femoral-popliteal selective angiograms were performed to map out the chronic total occlusion. Multiple catheters and wires were then utilized after patient was administered heparin and followed with ACTs with attempt to cross the lesion. Due to the highly dense calcification at the distal aspect of the lesion were unable to cross after utilizing a quick cross catheter, astato wire, gold tip wire. At that time the stop the procedure and patient will follow-up in the office to discuss bypass option as well as potential retrograde pedal access. Plan - Discharge Summary Discharge Rx Participant: No New Discharge Prescriptions: No Action RX: LORazepam [Ativan] 1 mg PO DAILY PRN #10 tab PRN Reason: Anxiety Aspirin EC [Ecotrin Low Dose] 81 mg PO DAILY risperiDONE [RisperDAL] 0.5 mg PO HS Venlafaxine HCl [Effexor] 75 mg PO HS Atorvastatin [Lipitor] 40 mg PO HS Discharge Medication List RX: LORazepam [Ativan] 1 mg PO DAILY PRN #10 tab 11/30/17 [Rx] Aspirin EC [Ecotrin Low Dose] 81 mg PO DAILY 09/20/18 [History] Atorvastatin [Lipitor] 40 mg PO HS 11/20/19 [History] Venlafaxine HCl [Effexor] 75 mg PO HS 11/20/19 [History] risperiDONE [RisperDAL] 0.5 mg PO HS 11/20/19 [History] Follow up Appointment(s)/Referral(s): Gabriele Zamora DO [STAFF PHYSICIAN] - 2 Weeks Discharge Disposition: HOME SELF-CARE
--- NOTE | 2020-04-30 10:41 | IR ---
EXAMINATION TYPE: IR angio extremity LT DATE OF EXAM: 04/30/2020 CLINICAL HISTORY: Peripheral arterial disease. TECHNIQUE: Fluoroscopy. COMPARISON: None. FINDINGS: Fluoroscopic guidance was provided during lower extremity angiogram procedure performed by Dr. Zamora. A total of 31 minutes of fluoroscopic time was utilized during the procedure at least 7 images are acquired. Please refer to procedure note for further details as I was not present nor performed procedure. IMPRESSION: As Above.
[2020-04-30 11:07] VITALS: RESP 16
[2020-04-30 14:15] VITALS: BP 152/70; PULSE 60
== END | disposition home or self-care (01) ==
LOC: CATHCVL 07:56
PROVIDERS: ATTEND Surgery
DX: I70.213 Atherosclerosis of native arteries of extremities with intermittent claudication, bilateral legs (principal); I70.92 Chronic total occlusion of artery of the extremities; Z87.891 Personal history of nicotine dependence; Z83.438 Family history of other disorder of lipoprotein metabolism and other lipidemia; Z85.46 Personal history of malignant neoplasm of prostate; Z90.79 Acquired absence of other genital organ(s); Z82.49 Family history of ischemic heart disease and other diseases of the circulatory system; Z79.82 Long term (current) use of aspirin; Z79.899 Other long term (current) drug therapy
CPT/HCPCS: 37224; 80048; 85025; C1894 ×2; C1769 ×6; C1887; J2250; J2720; J2001; J3010; J1644; Q9966; 37227; 75710; 76937

== ENCOUNTER 2020-05-28 07:45 | Inpatient (IN) | payer MEDICARE, OTHER ==
[2020-05-23 10:03] VITALS: BMI 36.6
[~2020-05-28 07:45] MED LIST changes: +DEXAMETHASONE SOD PHOSPHATE 10 MG/ML 1 ML VIAL IV ONE; -IOPAMIDOL-250 100ML BTL INTRAARTER ONE; +LIDOCAINE 1% (10MG/ML) FOR IV START INTRADERMA PRN; -LIDOCAINE 1% INJ 10MG/ML (20 ML MDV) SQ ONE; +MIDAZOLAM 2 MG/2 ML VIAL IV PRN; +ONDANSETRON 4 MG/2 ML VIAL IVP ONE; -PROTAMINE SULFATE 10 MG/ML 5 ML VIAL IV ONE; -SODIUM CHLORIDE 0.9% 1,000 ML in EMPTY BAG 1 BAG IV ONE; +ceFAZolin 3 GM in SODIUM CHLORIDE 0.9% 100 ML IVPB ONE
[2020-05-28] MEDS ORDERED: LIDOCAINE 1% (10MG/ML) FOR IV START INTRADERMA ONE (08:17)
[2020-05-28] MEDS: LACTATED RINGERS 1,000 ML IV SCH (08:24)
[2020-05-28] MEDS ORDERED: GLYCOPYRROLATE 0.2 MG/ML 2 ML VIAL ONE (10:20)
[2020-05-28] MEDS ORDERED: LIDOCAINE 1% INJ 10MG/ML (20 ML MDV) ONE (10:20)
[2020-05-28] MEDS ORDERED: SUCCINYLCHOLINE CHLORIDE 100 MG/5 ML SYR IV ONE (10:20)
[2020-05-28] MEDS ORDERED: fentaNYL (PF) 50 MCG/ML 2 ML AMP ONE (10:20)
[2020-05-28] MEDS ORDERED: NEOSTIGMINE 1 MG/ML 10 ML VIAL ONE (10:20)
[2020-05-28] MEDS ORDERED: PROTAMINE SULFATE 10 MG/ML 5 ML VIAL IV ONE (10:20)
[2020-05-28] MEDS ORDERED: PROPOFOL 10 MG/ML 20 ML VIAL IV ONE (10:20)
[2020-05-28] MEDS ORDERED: PHENYLEPHRINE-0.9% NACL SYG 1 MG/10 ML SYRINGE ONE (10:20)
[2020-05-28] MEDS ORDERED: HEPARIN SODIUM,PORCINE 10,000 UNIT/ML 1 ML VIAL ONE (10:20)
[2020-05-28] MEDS ORDERED: MIDAZOLAM 2 MG/2 ML VIAL ONE (10:20)
[2020-05-28] MEDS ORDERED: ROCURONIUM 10 MG/ML (5 ML VIAL) IV ONE (10:20)
[2020-05-28] MEDS ORDERED: SODIUM CHLORIDE 0.9% 1,000 ML with ceFAZolin 4,000 MG IRRIGATION ONE ×8 (11:00)
[2020-05-28] MEDS ORDERED: SODIUM CHLORIDE 0.9% IRRIGATION ONE ×2 (11:00)
[2020-05-28] MEDS ORDERED: HEPARIN SODIUM,PORCINE 10,000 UNIT in SODIUM CHLORIDE 0.9% 1,000 ML IRRIGATION ONE (11:00)
[2020-05-28] MEDS ORDERED: CEFAZOLIN IRRIGATION ONE ×2 (11:00)
[2020-05-28] MEDS ORDERED: LACTATED RINGERS 1,000 ML IV ONE (12:27)
[2020-05-28] MEDS ORDERED: THROMBIN (BOVINE) 5,000 UNIT VIAL TOPICAL ONE ×2 (13:09)
[2020-05-28] MEDS ORDERED: GELATIN SPONGE,ABSORB (LARGE) 1 EACH SPONGE TOPICAL ONE (13:09)
[2020-05-28] MEDS: HYDROmorphone 0.5 MG/0.5 ML SYRINGE IVP PRN ×2 (14:40→14:55)
[2020-05-28] MEDS ORDERED: HYDROcodone/APAP 5-325MG 1 EACH TAB PO PRN (15:03)
[2020-05-28] MEDS ORDERED: MORPHINE SULFATE 4 MG/ML SYRINGE IV PRN (15:03)
[2020-05-28] MEDS ORDERED: risperiDONE 0.5 MG TAB PO PRN (15:08)
[2020-05-28] MEDS ORDERED: LORazepam 1 MG TAB PO PRN (15:08)
--- NOTE | 2020-05-28 18:03 | P.OP ---
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 Right common femoral artery endarterectomy 2. Right femoral to above-knee popliteal artery bypass with [place] propatent graft Implants: 8 mm [place] graft Anesthesia: BERTA Surgeon: Gabriele Zamora [employer] #1: Megan Mathew Estimated Blood Loss (ml): 100 Pathology: other (Right Femoral plaque) Condition: stable Disposition: PACU Indications for Procedure: 69-year-old gentleman who presented originally to the office secondary to lower extremity claudication. Patient states he is unable to walk more than 50 feet without significant pain in his calf and has been on a walking program for the last several months. He underwent ABIs in the office which demonstrated 0.5 on the right. He did undergo angiogram which demonstrated a REHABILITATION WORKER of the right superficial femoral artery and attempt to cross this lesion and stent it was performed and failed. He presents today for bypass of the right superficial femoral artery. Description of Procedure: After written and informed consent was obtained the patient all risks benefits competitions were described the patient is brought to the operative suite and laid in a supine position. The area of the right lower extremity was prepped and draped in usual sterile fashion after appropriate anesthetic was performed per the anesthesiologist. A timeout was performed in normal fashion antibiotics were administered prior to incision. An oblique incision was then created at the right groin with a 10 blade scalpel and dissection was carried down with electrocautery to the common femoral artery. The femoral artery was then di ssected free in a circumferential manner and controlled proximally and distally with vessel loops. Once controlled attention was then placed to the above-knee popliteal artery. A vertical incision was created at the medial aspect of the thigh with a 10 blade scalpel and dissection was carried down to the popliteal artery with electrocautery. The popliteal artery was dissected free in a circumferential manner and controlled proximally and distally with vessel loops. The vessel was calcified at the common femoral artery as well as the popliteal artery. Once controlled an 8 mm [place] graft was tunneled between the 2 incisions. Patient was then administered heparin and followed with ACTs. Once ACT was above 200 the vessels were clamped at the common femoral artery and arteriotomy was created with 11 blade scalpel and extended with [employer] [place] scissors. There was dense calcification noted within the common femoral artery and therefore endarterectomy was chosen to be performed. Endarterectomy of the common femoral artery was then performed down to the superficial femoral artery which was severely diseased. Plaque was then sent off for pathology. The profundus femoris artery was visualized and shown to have good patency with good brisk backbleeding. Utilizing the graft an end-to-side anastomosis was created after spatulation of the graft was performed with a 6-0 Prolene suture in a running fashion. Once completed profundus artery was released revealing good backbleeding and inflow was released revealing good pulsatile blood flow through the graft. The popliteal anastomosis was then performed after spatulating the graft. Arteriotomy was created with at the popliteal artery with 11 blade scalpel and extended with P[employer] Morgan scissors. End-to-side anastomosis with 6-0 Prolene suture was then performed in normal fashion. Once completed backbleeding was assessed which revealed good brisk backbleeding. Inflow was then released revealing good pulsatile blood flow. Hemostasis was assured with Gelfoam and thrombin as well as Surgicel and Tisseel. Once hemostatic the incision was then copiously irrigated with antibiotic solution and the incision was closed in a multilayer fashion. The skin was cleansed and incisional VAC was placed. Patient had a palpable DP pulse at the conclusion of the procedure and was sent to PACU for recovery.
[2020-05-28] MEDS ORDERED: VENLAFAXINE HCL 75 MG TAB PO SCH (21:00)
[2020-05-28] MEDS ORDERED: ATORVASTATIN 40 MG TAB PO SCH (21:00)
--- NOTE | 2020-05-28 21:41 | P.CONS ---
History of Present Illness - Reason for Consult Consult date: 05/28/20 Medical management Requesting physician: Gabriele Zamora - Chief Complaint Right leg surgery - History of Present Illness Consultation: This is a pleasant 69-year-old patient of Dr. Forrest. Chronic stable medical conditions include prostate cancer treated with surgery and radiation treatment, overactive bladder, depression, hyperlipidemia. Patient had been getting cramps in his right leg with walking. He was diagnosed with Dr. Forrest to have peripheral artery disease. Patient was diagnosed to have right lower extremity claudication, right common femoral artery occlusive disease and superficial femoral artery chronic total occlusion. Patient today underwent right common femoral artery endarterectomy and above-knee popliteal artery bypass with a graft. Pain is controlled. Laying in bed. Awake. Review of systems: GEN.: Tired EYES: None HEENT: None NECK: None RESPIRATORY: Occasional short of breath and wheezing CARDIOVASCULAR: None GASTROINTESTINAL: None GENITOURINARY: None MUSCULOSKELETAL: None LYMPHATICS: None HEMATOLOGICAL: None PSYCHIATRY: None NEUROLOGICAL: None Past medical history to include: Prostate cancer treated with surgery and radiation treatment, overactive bladder, depression, intermittent claudication, hyperlipidemia Social history: Smoke half a pack a day for many years stopped recently. . Retired [employer]. Physical examination: VITAL SIGNS: 98, 59, 18, 140/78, 96% on 2 L GENERAL: BMI 36.5, laying in bed, awake. EYES: Pupils equal. Conjunctiva normal. HEENT: External appearance of nose and ears normal, oral cavity grossly normal. NECK: JVD not raised; masses not palpable. HEART: First and second heart sounds are normal; no edema. LUNGS: Respiratory rate increased; decreased breath sounds. ABDOMEN: Soft, nontender, liver spleen not palpable, no masses palpable. PSYCH: Alert and oriented x3; mood and affect normal. NEUROLOGICAL: Cranial nerves grossly intact; no facial asymmetry, power and sensation grossly intact. EXTREMITIES: Wound VAC on the right leg on the distal thigh, distal foot is warm. LYMPHATICS: No lymph nodes palpable in the axilla and neck INVESTIGATIONS, reviewed in the clinical context: Lab work from 04/30/2020: White count 6.7 hemoglobin 13.3 potassium 4.9 creatinine 1.2 to Assessment: -Peripheral artery disease with disabling claudication and evaluation findings of right common femoral artery occlusive disease and superficial femoral artery chronic total occlusion. Surgery performed including right common femoral artery endarterectomy and right femoral to above-knee popliteal artery bypass with a graft -COPD in an ex-smoker -Obesity BMI 36.5 -Anxiety depression otherwise specified -Hyperlipidemia Plan: Patient be continued on aspirin. Also Lipitor and Plavix. Getting IV fluids. Home medications to be continued. We'll give DuoNeb. Care was discussed with the patient question also. Thank you Dr. Zamora Past Medical History Past Medical History: Cancer Additional Past Medical History / Comment(s): prostate cancer treatment starting 11/29/17. -TREATMENTS COMPLETE. COLOGARD + FOR BLOOD History of Any Multi-Drug Resistant Organisms: None Reported Past Surgical History: Prostate Surgery Additional Past Surgical History / Comment(s): prostate removed, (R) FEM POP BYPASS 05/28/2020 Past Anesthesia/Blood Transfusion Reactions: No Reported Reaction Past Psychological History: Anxiety, Depression Smoking Status: Former smoker Past Alcohol Use History: None Reported Additional Past Alcohol Use History / Comment(s): QUIT SMOKING 6 WEEKS AGO Past Drug Use History: None Reported - Past Family History Brother(s) Family Medical History: Cancer Medications and Allergies Home Medications Medication Instructions Recorded Confirmed Type LORazepam [Ativan] 1 mg PO DAILY PRN #10 tab 11/30/17 05/28/20 Rx Aspirin EC [Ecotrin Low Dose] 81 mg PO DAILY 09/20/18 05/28/20 History Atorvastatin [Lipitor] 40 mg PO HS 11/20/19 05/28/20 History Venlafaxine HCl [Effexor] 75 mg PO HS 11/20/19 05/28/20 History risperiDONE [RisperDAL] 0.5 mg PO HS PRN 11/20/19 05/28/20 History Allergies Allergy/AdvReac Type Severity Reaction Status Date / Time No Known Allergies Allergy Verified 05/23/20 09:56 Physical Exam Vitals: Vital Signs Temp Pulse Resp BP BP Pulse Ox 05/28/20 19:39 18 05/28/20 15:34 98.0 F 59 L 18 140/78 96 05/28/20 15:00 61 16 148/58 98 05/28/20 14:45 65 16 156/79 146/70 99 05/28/20 14:30 67 16 143/72 145/69 98 05/28/20 14:11 97.9 F 76 16 165/79 155/71 98 09/22/20 07:58 97.7 F 73 16 179/80 99 Intake and Output 05/28/20 05/28/20 05/28/20 06:59 14:59 22:59 Intake Total 2302 240 Output Total 200 Balance 2102 240 Intake: IV 2302 Oral 240 Output: Urine 100 Estimated Blood Loss 100 Other: Voiding Method Indwelling Catheter Weight 122.2 kg
[2020-05-29] MEDS: IPRATROPIUM-ALBUTEROL 3 ML NEB INHALATION SCH ×3 (07:31→15:17)
[2020-05-29] MEDS: LACTATED RINGERS 1,000 ML IV SCH (07:56)
[2020-05-29] MEDS ORDERED: ASPIRIN 81 MG PO SCH (09:00)
[2020-05-29] MEDS ORDERED: CLOPIDOGREL 75 MG TAB PO SCH (09:00)
--- NOTE | 2020-05-29 11:22 | P.DS ---
Providers Date of admission: 05/28/20 07:45 Attending physician: Gabriele Zamora DO Consults: 05/28/20 15:08 Consult Physician Routine Consulting Provider: Grant Forrest Reason/Comments: medical management Do you want consulting provider notified?: Yes Primary care physician: Ryan Melgarearnest [facility] Course: The patient is a 69-year-old pleasant male who been following with Dr. Zamora and was diagnosed with disabling claudication in the right lower extremity, [place] classification 3 with right superficial femoral artery chronic total occlusion with reconstitution of the above knee popliteal artery. The patient is postop day #1 for a right common femoral artery endarterectomy and a right femoral to [id number] popliteal artery bypass with [place] propatent graft. The patient states he has been up and ambulating to the restroom. He has a Prevena Vac dressing to the right groin and right medial thigh. Patient states he's tolerated his dinner and breakfast. He states the pain to the right lower extremity has already improved. Assessment: General appearance: The patient is alert, oriented, in no acute distress. HET: Head is normocephalic and atraumatic.. Neck: Supple without lymphadenopathy. Trachea midline. Heart: S1 S2. Regular rate and rhythm. Lungs: No crackles or wheezes are heard. Abdomen: Soft, nontender, nondistended with bowel sounds. Extremities: Normal skin color and turgor. No cyanosis, rash, ulceration, clubbing, or edema. Right groin with protein a dressing intact with good suction, right medial thigh with prerenal dressing intact with good suction. Palpable DP and PT, good capillary refill. Neurological: No focal deficits. Strength and sensation are grossly intact. Assessment: 1. Right common femoral artery endarterectomy with a right femoral to above- knee popliteal artery bypass 2. Disabling claudication right lower extremity, [place] classification 3 3. 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 Patient to be on aspirin, Plavix, and Lipitor. Prevena wound vac dressing to remain in place for 7 days. Patient instructed no heavy lifting or straining, will need to wait for shower until dressings are off, no tub bath. He is to follow-up with Dr. Zamora in 2 weeks. The above dictated assessment and findings were discussed with Dr. Mathew. The impression and plan of care have been directed as dictated. Procedures: Right common femoral artery endarterectomy Right femoral to above knee popliteal artery bypass Patient Condition at Discharge: Good Plan - Discharge Summary Discharge Rx Participant: No New Discharge Prescriptions: New Clopidogrel [Plavix] 75 mg PO DAILY #90 tab Metoprolol Tartrate [Lopressor] 25 mg PO BID #60 tablet Continue LORazepam [Ativan] 1 mg PO DAILY PRN #10 tab PRN Reason: Anxiety Aspirin EC [Ecotrin Low Dose] 81 mg PO DAILY risperiDONE [RisperDAL] 0.5 mg PO HS PRN PRN Reason: Insomnia Venlafaxine HCl [Effexor] 75 mg PO HS Atorvastatin [Lipitor] 40 mg PO HS #90 tab Discharge Medication List LORazepam [Ativan] 1 mg PO DAILY PRN #10 tab 11/30/17 [Rx] Aspirin EC [Ecotrin Low Dose] 81 mg PO DAILY 09/20/18 [History] Venlafaxine HCl [Effexor] 75 mg PO HS 11/20/19 [History] risperiDONE [RisperDAL] 0.5 mg PO HS PRN 11/20/19 [History] Atorvastatin [Lipitor] 40 mg PO HS #90 tab 05/29/20 [Rx] Clopidogrel [Plavix] 75 mg PO DAILY #90 tab 05/29/20 [Rx] Metoprolol Tartrate [Lopressor] 25 mg PO BID #60 tablet 05/29/20 [Rx] Follow up Appointment(s)/Referral(s): Gabriele Zamora DO [STAFF PHYSICIAN] - 06/11/20 3:00 pm Patient Instructions/Handouts: Femoropopliteal Bypass (DC) Activity/Diet/Wound Care/Special Instructions: No strenuous activity including lifting greater than 20 pounds. Wound vac to stay in place for seven days. Sponge bath only, no shower until wound vac dressings are off, no tub bathing. Discharge Disposition: HOME SELF-CARE
[2020-05-29 11:23] VITALS: RESP 16
[2020-05-29 11:24] VITALS: TEMP 98
[2020-05-29 11:25] VITALS: PULSE 72
[2020-05-29] MEDS ORDERED: METOPROLOL TARTRATE 25 MG TAB PO SCH (11:47)
[2020-05-29 14:23] VITALS: BP 153/81
--- NOTE | 2020-05-29 21:22 | P.PN ---
Progress Note - Text Progress Note Date: 05/29/20 - Chief Complaint Right leg surgery Consultation: This is a pleasant 69-year-old patient of Dr. Forrest. Chronic stable medical conditions include prostate cancer treated with surgery and radiation treatment, overactive bladder, depression, hyperlipidemia. Patient had been getting cramps in his right leg with walking. He was diagnosed with Dr. Forrest to have peripheral artery disease. Patient was diagnosed to have right lower extremity claudication, right common femoral artery occlusive disease and superficial femoral artery chronic total occlusion. Patient underwent right common femoral artery endarterectomy and above-knee popliteal artery bypass with a graft. Today-doing well. Has been out of bed. Cleared by Dr. Zamora to go home. Patient blood pressure running high. Had a lengthy talk patient about his blood pressure and how to take his measurements. He'll be started on Lopressor. Including 1 dose now. Review of systems: Was done for constitutional, cardiovascular, GI, pulmonary. relevant finding as above Current medications reviewed in today's electronic records Physical examination: VITAL SIGNS: 98, 74, 16, 159/81, 94% room air GENERAL: Laying in bed, comfortable. EYES: Pupils equal. Conjunctiva normal. NECK: JVD not raised; masses not palpable. HEART: First and second heart sounds are normal; no edema. LUNGS: Respiratory rate increased; decreased breath sounds. ABDOMEN: Soft, nontender, liver spleen not palpable, no masses palpable. PSYCH: Alert and oriented x3; mood and affect normal. NEUROLOGICAL: Cranial nerves grossly intact; no facial asymmetry, power and sensation grossly intact. EXTREMITIES: Incision Wound VAC on the right leg on the distal thigh, distal foot is warm. INVESTIGATIONS, reviewed in the clinical context: Lab work from 04/30/2020: White count 6.7 hemoglobin 13.3 potassium 4.9 creatinine 1.2 to Assessment: -Peripheral artery disease with disabling claudication and evaluation findings of right common femoral artery occlusive disease and superficial femoral artery chronic total occlusion. Surgery performed including right common femoral artery endarterectomy and right femoral to above-knee popliteal artery bypass with a graft -COPD in an ex-smoker -Obesity BMI 36.5 -Anxiety depression otherwise specified -Hyperlipidemia -Essential hypertension-new diagnosis Plan: We'll start the patient on Lopressor 25 mg twice a day. Care was discussed with the patient. Follow-up with family doctor. Check his blood pressure daily and keep a log. Thank you Dr. Zamora
== END 2020-05-29 16:07 | disposition home or self-care (01) | DRG 253 ==
LOC: 2ORMAIN 07:45 → 3SCARD 15:07
PROVIDERS: ADMIT Surgery; ATTEND Surgery
PROC: 04CK0ZZ Extirpation of Matter from Right Femoral Artery, Open Approach (ICD-10-PCS; principal; 2020-05-28 10:00)
PROC: 041K0JL Bypass Right Femoral Artery to Popliteal Artery with Synthetic Substitute, Open Approach (ICD-10-PCS; principal; 2020-05-28 10:00)
DX: I70.211 Atherosclerosis of native arteries of extremities with intermittent claudication, right leg (principal); I70.92 Chronic total occlusion of artery of the extremities; Z87.891 Personal history of nicotine dependence; J44.9 Chronic obstructive pulmonary disease, unspecified; Z68.36 Body mass index [BMI] 36.0-36.9, adult; N32.81 Overactive bladder; F41.8 Other specified anxiety disorders; E66.9 Obesity, unspecified; E78.5 Hyperlipidemia, unspecified; I10 Essential (primary) hypertension; Z85.46 Personal history of malignant neoplasm of prostate; Z79.82 Long term (current) use of aspirin; Z79.899 Other long term (current) drug therapy; Z90.79 Acquired absence of other genital organ(s); Z92.3 Personal history of irradiation; Z80.9 Family history of malignant neoplasm, unspecified
CPT/HCPCS: 88304; 88311; 94640; 94760

== ENCOUNTER 2020-12-30 07:28 | Day surgery (SDC) | payer MEDICARE, OTHER ==
[2020-12-06 10:44] VITALS: BMI 36.6
[~2020-12-30 07:28] MED LIST changes: -DEXAMETHASONE SOD PHOSPHATE 10 MG/ML 1 ML VIAL IV ONE; +LACTATED RINGERS 1,000 ML IV SCH; -MIDAZOLAM 2 MG/2 ML VIAL IV PRN; -ONDANSETRON 4 MG/2 ML VIAL IVP ONE; -ceFAZolin 3 GM in SODIUM CHLORIDE 0.9% 100 ML IVPB ONE
[2020-12-30 08:01] VITALS: TEMP 96.7
[2020-12-30] MEDS ORDERED: LIDOCAINE 1% INJ 10MG/ML (20 ML MDV) ONE (08:30)
[2020-12-30] MEDS ORDERED: PROPOFOL 10 MG/ML 20 ML VIAL IV ONE (08:30)
--- NOTE | 2020-12-30 09:08 | P.PCN ---
Date of Procedure: 12/30/20 Description of Procedure: BRIEF HISTORY: Patient is a 70-year-old male presenting for outpatient colonoscopy for evaluation of tubular adenoma/history of polyps. Last colonoscopy in 09/2018 significant for tubular adenoma and poor prep. No change in bowel habits or blood per rectum. No family history of colon cancer. PROCEDURE PERFORMED: Colonoscopy with polypectomy. PREOPERATIVE DIAGNOSIS: Tubular adenoma, personal history of colon polyps, last colonoscopy 2018 with poor prep. ESTIMATED BLOOD LOSS: Minimal. IV sedation per Anesthesia. PROCEDURE: After informed consent was obtained, the patient, was brought into the endoscopy unit. IV sedation was administered by Anesthesia under continuous monitoring. Digital rectal examination was normal. Initially the Olympus CF-190 flexible video colonoscope was then inserted in the rectum, gradually advanced into the cecum without any difficulty. Careful examination was performed as the scope was gradually being withdrawn. Ileocecal valve and the appendiceal orifice were visualized and appeared normal. Prep was excellent. Mucosa of the cecum, ascending colon, transverse colon, descending colon, sigmoid colon, and rectum appeared normal. The patient had 2 large flat polyps measuring 11 mm in size from the transverse colon and 13 mm in size from the descending colon removed with hot snare polypectomy. A sessile 5 mm splenic flexure polyp was removed with cold snare polypectomy. Retroflexion was performed in the rectum and no lesions were seen. The patient tolerated the procedure well. IMPRESSION: 2 flat polyps removed from the transverse colon and descending colon with hot snare polypectomy. Sessile splenic flexure polyp removed with cold snare polypectomy. RECOMMENDATIONS: Findings of this examination were discussed with the patient and his family. Okay to resume diet. Okay to resume medications. Await pathology from polypectomy. Recommend repeat colonoscopy in 3 years for colon polyps or any pathology from polypectomy.
[2020-12-30 09:09] VITALS: PULSE 60; RESP 16
[2020-12-30 09:24] VITALS: BP 159/63
== END 2020-12-30 09:39 | disposition home or self-care (01) ==
LOC: ORWHC2ENDO 07:28
PROVIDERS: ATTEND Internal Medicine
DX: Z12.11 Encounter for screening for malignant neoplasm of colon (principal); D12.3 Benign neoplasm of transverse colon; D12.4 Benign neoplasm of descending colon; E78.5 Hyperlipidemia, unspecified; Z86.010 Personal history of colon polyps; Z87.891 Personal history of nicotine dependence; Z85.46 Personal history of malignant neoplasm of prostate; Z79.82 Long term (current) use of aspirin; Z79.899 Other long term (current) drug therapy
CPT/HCPCS: 88305; 45385; J2001; J2704

== ENCOUNTER → 2023-07-05 | Outpatient (CLI) | payer MEDICARE, OTHER ==
[2023-07-05 08:58] LABS: African American GFR (CKD) 59 (>60 ml/min/1.73 sqM); Blood Urea Nitrogen 20 mg/dL (9-20); Non-African American GFR(CKD) 51 (>60 ml/min/1.73 sqM)
--- NOTE | 2023-07-06 08:46 | CT ---
EXAMINATION TYPE: CT angio abd aorta w/Runoff DATE OF EXAM: 07/05/2023 11:05 AM COMPARISON: 04/30/2020, 11/21/2019 arteriogram. HISTORY: feet numbness CT DLP: 2726.4 mGycm Automated exposure control for dose reduction was used. TECHNIQUE: Performed with IV Contrast, patient injected with 100 mL of Isovue 370. . FINDINGS: Emphysematous changes involving the lung bases. Multiple hypodensities are seen within the liver some of which do not meet the criteria of a simple c yst recommend follow-up ultrasound. There are bilateral adrenal nodules which are indeterminate but most likely related to adenoma. Pancr eas demonstrates no focal mass. There are numerous gallstones. Bowel gas pattern demonstrates no evid ence of obstruction. Bilateral punctate renal calculi majority which appear to be vascular. Large sim ple appearing cyst right kidney measuring 5 Hounsfield units and 4.2 cm compatible with benign [place] k classification 1 cyst. There is a 3.5 cm infrarenal abdominal aortic aneurysm. There is ectasia of the distal abdominal aort a and there is mild atherosclerotic plaque. Moderate to severe disease the proximal left renal artery . Celiac trunk and SMA appear to be patent. LATA is diminutive with eccentric plaque but enhances. There is ectasia of the bilateral common iliac arteries. Mixed soft and calcified plaque contributes to approximately 50-60% stenosis of the proximal right common iliac artery. There is less than 50% st enosis of the left common iliac artery. Right lower extremity: Moderate disease of the left internal iliac artery with severe disease or short segmental occlusion o f the proximal right internal iliac artery. Right external iliac artery demonstrates moderate to severe disease near its origin measuring approxi mately 70% stenosis. There is additional multifocal moderate disease of the external iliac artery wit h a focal area of approximate 70% stenosis of the distal external iliac artery. There is prominence o f the right common femoral artery and area of suspected scar. This could represent an area of localiz ed fusiform dilation or ectasia likely representing surgical anastomosis with a femoral bypass graft seen to demonstrate localized areas of suspected intimal hyperplasia but no significant stenosis. The re is either a short segmental occlusion or high-grade stenosis at the distal anastomosis. Popliteal artery demonstrates multifocal disease with approximate 80% stenosis high grade. This is se en just distal to the suspected surgical anastomosis. There is multifocal disease the tibial peroneal trunk measuring 60-70% with a more localized area on axial image 439 series 5 measuring approximately 70%. There is multifocal disease of the tibial peroneal trunk with suspected severe stenosis. There is dif fuse multifocal severe disease of both the posterior tibial and anterior tibial arteries throughout t heir course. The peroneal artery is diminutive in size. Left lower extremity: Moderate diffuse disease in the common and external iliac artery. Measures less than 50%. There is diffuse disease of the left SFA and deep femoral artery. On maximal stenosis measures approx imately 50-60 % on the left CUSTODIAL LABORER and greater than 70% stenosis of the proximal deep femoral artery. There is a multifocal diffuse disease of the left SFA with occlusion of the SFA proximally and extend ing to the level of the popliteal artery. There is diffuse severe disease of the popliteal artery and tibial peroneal trunk with multifocal disease and severe stenoses. Short segmental occlusion of the tibial peroneal trunk. There is severe disease and stenosis at the origin of the left anterior tibial artery. There is diffuse bilateral multifocal moderate to severe disease of the anterior tibial and posterior tibial artery. Short segmental occlusions involving the anterior tibial artery. Bilateral hip arthropathy with multilevel degenerative changes of the spine. IMPRESSION: 1. Infrarenal abdominal aortic aneurysm measuring 3.5 cm. 2. Bilateral moderate disease common iliac arteries measuring less than 70% stenoses. 3. Left SFA long segmental occlusion with reconstitution near the level of the distal SFA or poplite al artery. Severe atherosclerotic disease/stenosis involving the popliteal artery and suspected short segmental occlusion of the tibial peroneal trunk. 4. Findings suggest a right femoral to popliteal bypass graft which is patent. However, there appears to be a severe stenosis at the level of the distal anastomosis as well as just beyond the anastomosi s within the popliteal artery. 5. Diffuse multifocal significant disease of the bilateral infrapopliteal vasculature. 6. Recommend ultrasound of the abdomen to assess the hepatic lesions which do not meet the criteria o f simple cyst.
== END | disposition home or self-care (01) ==
LOC: RADCTMAIN 08:08
PROVIDERS: ATTEND Surgery
DX: I70.223 Atherosclerosis of native arteries of extremities with rest pain, bilateral legs (principal); I71.43 Infrarenal abdominal aortic aneurysm, without rupture
CPT/HCPCS: 82565; 84520; 75635; 36415; Q9967

== ENCOUNTER 2023-07-31 11:52 | Inpatient (IN) | payer MEDICARE, OTHER ==
[2023-07-31] MEDS ORDERED: SODIUM CHLORIDE 0.9% 1,000 ML IV STA (12:12)
[2023-07-31 12:25] LABS: Glucose,Whole Blood 127 mg/dL (70-110)
--- NOTE | 2023-07-31 12:38 | ED ---
General Adult HPI - General Chief complaint: Neuro Symptoms/Deficit Stated complaint: poss stroke Time Seen by Provider: 07/31/23 12:11 Source: patient Mode of arrival: ambulatory Limitations: no limitations - History of Present Illness Initial comments: Dictation was produced using [employer] dictation software. please excuse any grammatical, word or spelling errors. Chief Complaint: 73-year-old male presents emergency prior for left-sided weakness History of Present Illness: 73-year-old male presents emergency by her left- sided weakness. States that since last night he was dragging his leg. He went to bed. Woke this morning with persistent symptoms however he states that since this morning symptoms feel better. He did report some tingling to his left arm and left leg. States the tingling resolved and he feels like his leg is less weak though still weak. Denies any headache. No nausea vomiting or diarrhea. No chest pain or abdominal pain. The ROS documented in this emergency department record has been reviewed and confirmed by me. Those systems with pertinent positive or negative responses have been documented in the HPI. All other systems are other negative and/or noncontributory. - Related Data Home Medications Medication Instructions Recorded Confirmed Aspirin EC [Ecotrin Low Dose] 81 mg PO DAILY 09/20/18 12/30/20 Calcium Carbonate [Calcium] 600 mg PO DAILY 12/06/20 12/30/20 Previous Rx's Medication Instructions Recorded LORazepam [Ativan] 1 mg PO DAILY PRN #10 tab 11/30/17 Atorvastatin [Lipitor] 40 mg PO HS #90 tab 05/29/20 Allergies Allergy/AdvReac Type Severity Reaction Status Date / Time No Known Allergies Allergy Verified 07/31/23 11:59 Review of Systems ROS Statement: Those systems with pertinent positive or pertinent negative responses have been documented in the HPI. ROS Other: All systems not noted in ROS Statement are negative. Past Medical History Past Medical History: Cancer, GERD/Reflux Additional Past Medical History / Comment(s): Hx Prostate cancer 2018. History of Any Multi-Drug Resistant Organisms: None Reported Past Surgical History: Prostate Surgery Additional Past Surgical History / Comment(s): Prostate removed, right femoral p opliteal bypass. Past Anesthesia/Blood Transfusion Reactions: No Reported Reaction Past Psychological History: Anxiety, Depression Smoking Status: Former smoker Past Alcohol Use History: None Reported Past Drug Use History: None Reported - Past Family History Brother(s) Family Medical History: Cancer General Exam - General Exam Comments Initial Comments: PHYSICAL EXAM: General Impression: Alert and oriented x3, not in acute distress HEENT: Normocephalic atraumatic, extra-ocular movements intact, pupils equal and reactive to light bilaterally, mucous membranes moist. Cardiovascular: Heart regular rate and rhythm Chest: Able to complete full sentences, no retractions, no tachypnea Abdomen: abdomen soft, non-tender, non-distended, no organomegaly Musculoskeletal: Pulses present and equal in all extremities, no peripheral edema Motor: no focal deficits noted Neurological: Mild left facial droop, drift of the left arm and left leg, NIH score of 3, no sensory deficits to light touch Skin: Intact with no visualized rashes Psych: Normal affect and mood Limitations: no limitations Course Vital Signs 07/31/23 11:54 Temperature 97.4 F L Pulse Rate 48 L Respiratory 20 Rate Blood Pressure 218/74 O2 Sat by Pulse 96 Oximetry Medical Decision Making - Medical Decision Making Was pt. sent in by a medical professional or institution (Dr. PA, PILE DRIVING TECHNICIAN, urgent care, hospital, or shelter...) When possible be specific @ -No Did you speak to anyone other than the patient for history (EMS, parent, family, police, friend...)? What history was obtained from this source @ -No Did you review nursing and triage notes (agree or disagree)? Why? @ -I reviewed and agree with nursing and triage notes Were old charts reviewed (outside hosp., previous admission, EMS record, old EKG, old radiological studies, urgent care reports/EKG's, shelter records)? Report findings @ -No old charts were reviewed Differential Diagnosis (chest pain, altered mental status, abdominal pain women, abdominal pain men, vaginal bleeding, musculoskeletal, weakness, fever, dyspnea, syncope, headache, dizziness, GI bleed, back pain, seizure, CVA, palpatations, mental health)? @ - Differential CVA: Ischemic stroke, hemorrhagic stroke, brain tumor, atypical migraine, Wernicke's encephalopathy, seizure, multiple sclerosis, meningitis, encephalitis, hypoglycemia, Guillain-Reynolds, electrolytes disturbance, myasthenia gravis.... This is not meant to be an all-inclusive list EKG interpreted by me (3pts min.). @ -My EKG interpretation: Ventricular rate 71, sinus rhythm,. Interval to 49, QRS 1:15, QTC 47. No WA prolongation, no QTC prolongation, no ST or T-wave changes noted. No old EKG for comparison Overall, this EKG is unremarkable X-rays interpreted by me (1pt min.). @ -Chest x-ray is nonacute CT interpreted by me (1pt min.). @ -CT Brain is unremarkable for acute processes. CT angiography shows no large vessel occlusion U/S interpreted by me (1pt. min.). @ -None done What testing was considered but not performed or refused? (CT, X-rays, U/S, labs)? Why? @ -None What meds were considered but not given or refused? Why? @ -None Did you discuss the management of the patient with other professionals (professionals i.e. , PA, PILE DRIVING TECHNICIAN, lab, RT, psych nurse, social worker aide, manager surgery, teacher, patient transport officer, rn case management)? Give summary @ -Cussed with hospitalist for admission Was smoking cessation discussed for >3mins.? @ -No Was critical care preformed (if so, how long)? @ -No Were there social determinants of health that impacted care today? How? (Homelessness, low income, unemployed, alcoholism, drug addiction, transportation, low edu. Level, literacy, decrease access to med. care, senior living, rehab)? @ -No Was there de-escalation of care discussed even if they declined (Discuss DNR or withdrawal of care, Hospice)? DNR status @ -No What co-morbidities impacted this encounter? (DM, HTN, Smoking, COPD, CAD, Cancer, CVA, ARF, Chemo, Hep., AIDS, mental health diagnosis, sleep apnea, morbid obesity)? @ -None Was patient admitted / discharged? Hospital course, mention meds given and route, prescriptions, significant lab abnormalities, going to OR and other pertinent info. @ -73 Year-old male presents emergency department for a symmetrical neurologic deficit. Clinical presentation suspicious for stroke. Code stroke page. Patient outside the window of alteplase. CT was negative for any acute proce sses. CT angiography shows no large vessel occlusion. Patient not a candidate for thrombectomy. Vital signs are stable. Patient reevaluated bedside at 1:56 PM found to be stable medical condition. Patient will for admission. Given aspirin neurology will be consulted. Undiagnosed new problem with uncertain prognosis? @ -No Drug Therapy requiring intensive monitoring for toxicity (Heparin, Nitro, Insulin, Cardizem)? @ -No Were any procedures done? @ -No Diagnosis/symptom? Acute, or Chronic, or Acute on Chronic? Uncomplicated (without systemic symptoms) or Complicated (systemic symptoms)? @ -CVA Side effects of treatment? @ -No Exacerbation, Progression, or Severe Exacerbation? @ -No Poses a threat to life or bodily function? How? (Chest pain, [place], [place], pneumonia, PE, COPD, DKA, ARF, appy, cholecystitis, CVA, Diverticulitis, Homicidal, Suicidal, threat to staff... and all critical care pts) @ -yes - Lab Data Result diagrams: 07/31/23 12:25 07/31/23 13:14 Lab Results 07/31/23 07/31/23 07/31/23 Range/Units 12: 12: 12:25 WBC 7.1 (3.8-10.6) k/uL RBC 4.48 (4.30-5.90) m/uL Hgb 14.7 (13.0-17.5) gm/dL Hct 44.0 (39.0-53.0) % MCV 98.0 (80.0-100.0) fL MCH 32.9 (25.0-35.0) pg MCHC 33.5 (31.0-37.0) g/dL RDW 13.9 (11.5-15.5) % Plt Count 316 (150-450) k/uL MPV 8.2 Neutrophils % 76 % Lymphocytes % 14 % Monocytes % 7 % Eosinophils % 2 % Basophils % 0 % Neutrophils # 5.4 (1.3-7.7) k/uL Lymphocytes # 1.0 (1.0-4.8) k/uL Monocytes # 0.5 (0-1.0) k/uL Eosinophils # 0.1 (0-0.7) k/uL Basophils # 0.0 (0-0.2) k/uL PT 11.3 (10.0-12.5) sec INR 1.0 (<1.2) APTT 22.1 (22.0-30.0) sec Sodium (137-145) mmol/L Potassium (3.5-5.1) mmol/L Chloride (98-107) mmol/L Carbon Dioxide (22-30) mmol/L Anion Gap mmol/L BUN (9-20) mg/dL Creatinine (0.66-1.25) mg/dL Est GFR (CKD-EPI)AfAm (>60 ml/min/1.73 sqM) Est GFR (CKD-EPI)NonAf (>60 ml/min/1.73 sqM) Glucose (74-99) mg/dL POC Glucose (mg/dL) 127 H (70-110) mg/dL POC Glu Counterintelligence Agent ID José Miguel Silva Calcium (8.4-10.2) mg/dL Total Bilirubin (0.2-1.3) mg/dL AST (17-59) U/L ALT (4-49) U/L Alkaline Phosphatase (38-126) U/L Troponin I (0.000-0.034) ng/mL Total Protein (6.3-8.2) g/dL Albumin (3.5-5.0) g/dL 07/31/23 07/31/23 Range/Units 12:25 13:14 WBC (3.8-10.6) k/uL RBC (4.30-5.90) m/uL Hgb (13.0-17.5) gm/dL Hct (39.0-53.0) % MCV (80.0-100.0) fL MCH (25.0-35.0) pg MCHC (31.0-37.0) g/dL RDW (11.5-15.5) % Plt Count (150-450) k/uL MPV Neutrophils % % Lymphocytes % % Monocytes % % Eosinophils % % Basophils % % Neutrophils # (1.3-7.7) k/uL Lymphocytes # (1.0-4.8) k/uL Monocytes # (0-1.0) k/uL Eosinophils # (0-0.7) k/uL Basophils # (0-0.2) k/uL PT (10.0-12.5) sec INR (<1.2) APTT (22.0-30.0) sec Sodium 138 (137-145) mmol/L Potassium 4.4 (3.5-5.1) mmol/L Chloride 103 (98-107) mmol/L Carbon Dioxide 24 (22-30) mmol/L Anion Gap 11 mmol/L BUN 17 (9-20) mg/dL Creatinine 1.25 (0.66-1.25) mg/dL Est GFR (CKD-EPI)AfAm 67 (>60 ml/min/1.73 sqM) Est GFR (CKD-EPI)NonAf 58 (>60 ml/min/1.73 sqM) Glucose 119 H (74-99) mg/dL POC Glucose (mg/dL) (70-110) mg/dL POC Glu Counterintelligence Agent ID Calcium 9.1 (8.4-10.2) mg/dL Total Bilirubin 0.7 (0.2-1.3) mg/dL AST 28 (17-59) U/L ALT 22 (4-49) U/L Alkaline Phosphatase 64 (38-126) U/L Troponin I <0.012 (0.000-0.034) ng/mL Total Protein 7.8 (6.3-8.2) g/dL Albumin 4.3 (3.5-5.0) g/dL Disposition Clinical Impression: Cerebrovascular accident (CVA) Disposition: ADMITTED IP TO THIS HOSP Condition: Fair Referrals: Gratn Forrest MD [Primary Care Provider] - 1-2 days Decision Time: 13:57
[2023-07-31 12:43] LABS: Basophils % (A) 0 %; Eosinophils # (A) 0.1 k/uL (0-0.7); Eosinophils % (A) 2 %; HGB 14.7 gm/dL (13.0-17.5); Lymphocytes % (A) 14 %; MCH 32.9 pg (25.0-35.0); MCHC 33.5 g/dL (31.0-37.0); Mean Platelet Volume 8.2; Monocytes # (A) 0.5 k/uL (0-1.0); Monocytes % (A) 7 %; Neutrophils # (A) 5.4 k/uL (1.3-7.7); Neutrophils % (A) 76 %; Platelet Count 316 k/uL (150-450); RBC 4.48 m/uL (4.30-5.90); RDW 13.9 % (11.5-15.5); WBC 7.1 k/uL (3.8-10.6)
--- NOTE | 2023-07-31 12:48 | CT ---
Zana[facility] I EXAMINATION TYPE: CT brain wo con DATE OF EXAM: 07/31/2023 COMPARISON: 11/26/2017 HISTORY: left side weakness and facial droop CT DLP: 1129.[address] of the brain was performed. The ventricles, basal cisterns and sulci overlying the cerebral convexities demonstrate mild enlargem ent. Small remote lacunar insults within the lopez radiata bilaterally and left basal ganglia. There is no evidence for intracranial hemorrhage or sulcal effacement. There is decreased attenuation about the periventricular white matter and deep white matter of both c erebral hemispheres, compatible with chronic small vessel ischemia. Differential diagnosis does inclu de demyelination. No mass effects are seen.No midline shift. Osseous calvarium is intact. If symptoms persist consider MRI. IMPRESSION: 1. Age related atrophic and chronic small vessel ischemic change without acute intracranial process s een at this time.
--- NOTE | 2023-07-31 12:48 | XR ---
EXAMINATION TYPE: XR chest 2V DATE OF EXAM: 07/31/2023 COMPARISON: NONE HISTORY: Shortness of breath TECHNIQUE: Frontal and lateral views of the chest are obtained. FINDINGS: Scattered senescent parenchymal changes noted. Hyperinflation compatible with COPD. No evidence for infiltrate. No evidence for atelectasis. Heart size is stable. Mediastinal structures are stable and grossly unremarkable. No evidence for hilar prominence. Degenerative changes dorsal spine. IMPRESSION: 1. No evidence for acute pulmonary disease.
[2023-07-31 12:58] LABS: Partial Thromboplastin Time 22.1 sec (22.0-30.0); Prothrombin Time 11.3 sec (10.0-12.5)
--- NOTE | 2023-07-31 13:04 | CT ---
EXAMINATION TYPE: CT angio head neck DATE OF EXAM: 07/31/2023 COMPARISON: None HISTORY: left side weakness and facial droop CT DLP: 794.2 mGycm CONTRAST: Performed with IV Contrast, patient injected with 80 mL of Isovue 300. Combination Contrast CTA cervical carotids and [place] CTA cervical carotids with 3-D recons truction Contrast CTA of the cervical carotids was performed 3-D reconstruction imaging obtained at a separate workstation. Right carotid system: Mild plaque is seen of the right common carotid artery. There is mild plaque a lso noted at the carotid bulb and proximal ICA. 50% diameter reduction suggested right proximal ICA. ECA is patent. Right vertebral artery appears unremarkable. Left carotid system: Mild plaque is seen of the left common carotid artery. There is mild plaque als o noted at the carotid bulb and proximal ICA. No significant diameter reduction. ECA is patent. Lef t vertebral artery appears unremarkable. IMPRESSION: 1. 50% diameter reduction suggested right proximal ICA CTA [place] with 3-D reconstruction Contrast CTA of the [place] was performed 3-D reconstruction imaging obtained at a separate workstation. Vertebrobasilar system as well as intracranial portions of the internal carotid arteries and their ma dagmar tributaries are patent. I do not see evidence for sizable aneurysm or vascular malformation. Pl ease note MRI provides greater sensitivity and specificity. Visualized brain appears grossly unremar kable. IMPRESSION: 1. No significant abnormality. NASCET criteria was used in interpretation of this exam?
[2023-07-31 13:36] LABS: ALT 22 U/L (4-49); AST 28 U/L (17-59); African American GFR (CKD) 67 (>60 ml/min/1.73 sqM); Albumin 4.3 g/dL (3.5-5.0); Alkaline Phosphatase 64 U/L (38-126); Anion Gap 11 mmol/L; Blood Urea Nitrogen 17 mg/dL (9-20); Calcium 9.1 mg/dL (8.4-10.2); Carbon Dioxide 24 mmol/L (22-30); Chloride 103 mmol/L (98-107); Glucose 119 mg/dL (74-99); Non-African American GFR(CKD) 58 (>60 ml/min/1.73 sqM); Potassium 4.4 mmol/L (3.5-5.1); Sodium 138 mmol/L (137-145); Total Bilirubin 0.7 mg/dL (0.2-1.3); Total Protein 7.8 g/dL (6.3-8.2)
[2023-07-31] MEDS ORDERED: ASPIRIN 81 MG PO STA (13:40)
[2023-07-31] MEDS ORDERED: ACETAMINOPHEN TAB 325 MG TAB PO PRN (17:24)
[2023-07-31] MEDS ORDERED: NALOXONE 0.4 MG/ML 1 ML VIAL IV PRN (17:24)
--- NOTE | 2023-07-31 17:44 | P.HPIM ---
History of Present Illness H&P Date: 07/31/23 Chief Complaint: Left sided weakness CC: Left-sided weakness HPI: This is a 73-year-old gentleman with a medical history significant for prostate cancer status post prostatectomy and radiation and PVD status post stenting who presented with left-sided weakness. He states around 11 PM last night he noticed he was dragging his left leg and had some incoordination and weakness in his left hand. He went to bed and awoke this morning with persistent symptoms therefore presented to the ED. He also states his noticed a mild left-sided facial droop. He denied any dysarthria or aphasia. He did endorse numbness in his toes which comes and goes intermittently and is chronic for him but no other sensory changes. No vision changes. Denies any other neurologic complaints. Initial CT head was negative for acute process. CTA with 50% stenosis right ICA. He was initially hypertensive on presentation but now normotensive without treatment. Complete ROS performed, pertinent positives and negatives in HPI Family history Negative for stroke Surgical history History of prostatectomy Social history Smokes 3-4 cigars a day Denies alcohol or illicit drug use ALLERGIES NKDA Meds reviewed Objective: Vitals: Reviewed General: No acute distress HEENT: Mucous membranes moist neck supple Cardiovascular: RRR, S1-S2 Lungs: Breath sounds equal and clear to auscultation bilaterally. No wheezing, rhonchi or rales Abdomen: Soft, nontender, nondistended Extremities: No lower extremity edema Neuro: Mild left-sided facial droop, left-sided 4+/5 as compared to 5/5 in the right side. No other focal deficits noted. Sensation intact. Pertinent labs and imaging reviewed Assessment and plan: 1. Stroke like symptoms CT head negative for acute process. CTA with right ICA stenosis 50%. Continue aspirin and statin. Telemetry monitoring. PT/OT/ST. Swallow eval. Echo with bubble study. MRI brain ordered. Neurology consulted. 2. History of PVD status post stenting Continue aspirin and statin DVT prophylaxis with subcu heparin Past Medical History Past Medical History: Cancer, GERD/Reflux Additional Past Medical History / Comment(s): Hx Prostate cancer 2018. History of Any Multi-Drug Resistant Organisms: None Reported Past Surgical History: Prostate Surgery Additional Past Surgical History / Comment(s): Prostate removed, right femoral popliteal bypass. Past Anesthesia/Blood Transfusion Reactions: No Reported Reaction Past Psychological History: Anxiety, Depression Smoking Status: Former smoker Past Alcohol Use History: None Reported Past Drug Use History: None Reported - Past Family History Brother(s) Family Medical History: Cancer Medications and Allergies Home Medications Medication Instructions Recorded Confirmed Type Aspirin EC [Ecotrin Low Dose] 81 mg PO DAILY 09/20/18 07/31/23 History Allergies Allergy/AdvReac Type Severity Reaction Status Date / Time No Known Allergies Allergy Verified 07/31/23 16:12 Physical Exam Vitals: Vital Signs Temp Pulse Resp BP Pulse Ox 07/31/23 14:55 68 18 113/97 96 07/31/23 11:54 97.4 F L 48 L 20 218/74 96 Intake and Output 07/31/23 07/31/23 07/31/23 06:59 14:59 22:59 Other: Weight 111.992 kg Results CBC & Chem 7: 07/31/23 12:25 07/31/23 13:14 Labs: Abnormal Lab Results - Last 24 Hours (Table) 07/31/23 07/31/23 Range/Units 12:23 13:14 Glucose 119 H (74-99) mg/dL POC Glucose (mg/dL) 127 H (70-110) mg/dL
[2023-07-31] MEDS: ATORVASTATIN 40 MG TAB PO SCH (18:57)
[2023-07-31] MEDS: HEPARIN SODIUM,PORCINE 5,000 UNIT/ML 1 ML VIAL SQ SCH ×2 (18:57→23:55)
--- NOTE | 2023-07-31 19:35 | P.CNNES ---
History of Present Illness Consult date: 07/31/23 Requesting physician: Oscar Zavala Reason for Consult: Code stroke History of Present Illness: Patient is a 73-year-old left-handed male, otherwise healthy, came to the hospital today at 11:52 AM because of stroke symptoms. Patient states that he went to sleep last night at 9 PM in usual state of health. At 11 PM he woke up to go to the bathroom and noticed his left leg was dragging. He came back and went to sleep. Couple hours later he woke up and while walking had the same feeling, almost fell to the window. He was pulling along the left leg. At 5:30 AM this morning he finally woke up, and drove to son's house, who told him to go to the hospital. Patient said that his has earlier noticed that he had left facial droop. Patient denies any arm weakness. Patient states that while trying to write, it appears like a scribble. He denies any slurred speech, facial droop, any problem with the vision or headache. His vital signs on arrival blood pressure 218/74, which improved to 113/97, then went up to 174/98. Pulse rate 48, temperature 97.4. Blood test shows normal CBC, PT/PTT, normal CMP, troponin and TSH. CT head revealed age-related atrophic and chronic small vessel ischemic change without acute intracranial process seen at this time. There is evidence of small remote lacunar insults within the lopez radiata bilaterally and left basal ganglia. I personally reviewed CT head, agree with the findings. On my review, there is evidence of single old lacunar infarcts in bilateral centrum semiovale, and also a small area of encephalomalacia involving the left frontal horn of the left ventricle. Chest x-ray normal, EKG with first-degree AV block. Patient was evaluated by ED staff, and was not a candidate for TPA, as his symptoms have been present for more than 12 hours prior to arrival. Patient not a candidate for thrombectomy. No large vessel occlusion. Patient was given aspirin 324 mg in the ER. Patient notices that his left leg has improved, about 75-80% back to normal. Patient denies diabetes hypertension or any high cholesterol. He does take aspirin 81 mg daily for last 35-40 years. Patient has smoked 2 packs per day from age 18, until age 53, when he cutback and started smoking only 3-4 cigars per day. This is how much she smoking at this time. Denies any alcohol or drug use. Patient says that he had undergone stenting of both legs to years ago. Patient has history of prostate cancer. Review of Systems Constitutional: Reports weight loss, Denies chills, Denies fever Eyes: denies blurred vision, denies diplopia, denies pain Ears: deny: decreased hearing, ear discharge Ears, nose, mouth and throat: Denies headache, Denies sore throat Cardiovascular: Denies chest pain, Denies shortness of breath Respiratory: Denies cough, Denies excessive sputum Gastrointestinal: Denies abdominal pain, Denies diarrhea, Denies nausea, Denies vomiting Genitourinary: Reports incontinence, Reports urinary frequency Musculoskeletal: Reports low back pain, Denies neck pain Integumentary: Denies pruritus, Denies rash Neurological: Reports as per HPI Psychiatric: Reports anxiety, Reports depression Endocrine: Reports fatigue, Reports weight change Hematologic/Lymphatic: Denies easy bleeding, Denies easy bruising Past Medical History Past Medical History: Cancer, GERD/Reflux Additional Past Medical History / Comment(s): Hx Prostate cancer 2018. History of Any Multi-Drug Resistant Organisms: None Reported Past Surgical History: Prostate Surgery Additional Past Surgical History / Comment(s): Prostate removed, right femoral popliteal bypass. Past Anesthesia/Blood Transfusion Reactions: No Reported Reaction Past Psychological History: Anxiety, Depression Smoking Status: Former smoker Past Alcohol Use History: None Reported Past Drug Use History: None Reported - Past Family History Brother(s) Family Medical History: Cancer Medications and Allergies Home Medications Medication Instructions Recorded Confirmed Type Aspirin EC [Ecotrin Low Dose] 81 mg PO DAILY 09/20/18 07/31/23 History LORazepam 1 tab PO QID PRN 08/01/23 08/01/23 History Allergies Allergy/AdvReac Type Severity Reaction Status Date / Time No Known Allergies Allergy Verified 07/31/23 16:12 Physical Examination - Vital Signs Vital Signs: Vital Signs Temp Pulse Resp BP Pulse Ox 07/31/23 18:24 99 18 174/98 96 07/31/23 14:55 68 18 113/97 96 07/31/23 11:54 97.4 F L 48 L 20 218/74 96 Intake and Output 07/31/23 07/31/2323 06:59 14:59 22:59 Other: Weight 111.992 kg Patient is a young-looking elderly male, in no acute distress. Patient is alert awake oriented to time place and person. Speech and language functions are normal. Patient can name and repeat very well. No aphasia or dysarthria. Attention, concentration and fund of knowledge is adequate. On cranial nerve examination, pupils are equal, round and reacting to light, visual pelayo are full on confrontation, with no neglect on double simultaneous stimulation. Extraocular muscles are intact with no nystagmus. Patient has left facial droop, central type. His tongue protrudes to the midline. Palatal elevation and sensation normal, hearing and shoulder shrug normal, facial sensation normal. On muscle strength testing, there is a left pronator drift about 10 and the strength is (right/left) deltoid 5/5, biceps 5/5-, triceps 5/5, field staff manager 5/5-, hip flexion 5/5, ankle dorsiflexion 5/5. Deep tendon reflexes are symmetric biceps 1/1, brachioradialis 1/1, knees 2/2, ankles 1+/1+ and plantar is downgoing on the right, up on the left. Sensory to touch is decreased in the left arm, but is equal in the face and the legs. Cerebellar function showed mild ataxia for bafxib-tw-hoee testing only with the left arm. Patient has mild ataxia for irve-am-ldxv testing, only in the left side. Tone and bulk of muscles normal. Gait deferred.. On general examination, there is no carotid bruit or murmur, S1-S2 audible. Chest is clear on consultation. Abdomen is soft nontender. No organomegaly, bowel sounds present. Peripheral pulses are present. No peripheral edema. Results - Laboratory Findings CBC and BMP: 08/02/23 06:04 08/02/23 06:04 Abnormal Lab Findings: Abnormal Labs 07/31/23 07/31/23 12:23 13:14 Glucose 119 H POC Glucose (mg/dL) 127 H Assessment and Plan Assessment: * Probable stroke, manifesting with mild left hemiparesis and left-sided ataxia. Patient's current NIH stroke scale is 4. Patient not a candidate for TPA as he came outside the window for TPA. * Elevated blood pressure, likely hypertension * Tobacco use * History of prostate cancer Plan: * MRI of the brain without contrast, evaluate for acute CVA * 2-D echo with bubble study to rule out PFO * CTA neck showed: 50% diameter reduction suggest proximal right ICA. CTA of the head is normal. * Fasting a.m. lipid panel * Hemoglobin A1c * Permissive hypertension for next 24-48 hours * Patient has failed aspirin regimen. We will start Plavix 75 mg daily. After 21 days of DAPT, patient will stop aspirin and continue Plavix. * Neuro checks as per protocol. * Telemetry monitoring rule out any arrhythmia * Recommend complete tobacco cessation. * PT, OT, speech therapy * DVT prophylaxis: Heparin 5000 units subcu every 8 hours * Neurology will continue to follow. Thank you for the consult.
[2023-07-31] MEDS: CLOPIDOGREL 75 MG TAB PO SCH (19:47)
[2023-08-01 07:27] LABS: Basophils % (A) 0 %; Eosinophils # (A) 0.1 k/uL (0-0.7); Eosinophils % (A) 2 %; HCT 45.5 % (39.0-53.0); HGB 15.1 gm/dL (13.0-17.5); Lymphocytes # (A) 0.7 k/uL (1.0-4.8); Lymphocytes % (A) 12 %; MCH 32.3 pg (25.0-35.0); MCHC 33.1 g/dL (31.0-37.0); MCV 97.6 fL (80.0-100.0); Mean Platelet Volume 8.4; Monocytes # (A) 0.6 k/uL (0-1.0); Monocytes % (A) 10 %; Neutrophils # (A) 4.4 k/uL (1.3-7.7); Neutrophils % (A) 74 %; Platelet Count 297 k/uL (150-450); RBC 4.67 m/uL (4.30-5.90); RDW 14.2 % (11.5-15.5); WBC 5.9 k/uL (3.8-10.6)
[2023-08-01 07:46] LABS: African American GFR (CKD) 81 (>60 ml/min/1.73 sqM); Anion Gap 7 mmol/L; Blood Urea Nitrogen 14 mg/dL (9-20); Calcium 9.1 mg/dL (8.4-10.2); Carbon Dioxide 24 mmol/L (22-30); Chloride 105 mmol/L (98-107); Glucose 89 mg/dL (74-99); Non-African American GFR(CKD) 70 (>60 ml/min/1.73 sqM); Potassium 4.9 mmol/L (3.5-5.1); Sodium 136 mmol/L (137-145)
[2023-08-01] MEDS: ASPIRIN 81 MG PO SCH (09:09)
[2023-08-01] MEDS: ATORVASTATIN 40 MG TAB PO SCH (09:10)
[2023-08-01] MEDS: HEPARIN SODIUM,PORCINE 5,000 UNIT/ML 1 ML VIAL SQ SCH ×2 (09:10→16:09)
[2023-08-01] MEDS: CLOPIDOGREL 75 MG TAB PO SCH (09:10)
--- NOTE | 2023-08-01 12:53 | P.PN ---
Subjective Progress Note Date: 08/01/23 Principal diagnosis: stroke-like symptoms CC: Left-sided weakness Subjective: Mr. Ferguson was seen and examined. States he has not been able to assess his left-sided weakness as he has not been up and walking yet. Overall, feels unchanged from yesterday. States he is a DO NOT RESUSCITATE in his will. I did explain to him what DO NOT RESUSCITATE meant and states he would like to be full code with no sustainable measures if in a vegetative state. Objective: Vitals: Reviewed General: No acute distress HEENT: Mucous membranes moist neck supple Cardiovascular: RRR, S1-S2 Lungs: Breath sounds equal and clear to auscultation bilaterally. No wheezing, rhonchi or rales Abdomen: Soft, nontender, nondistended Extremities: No lower extremity edema Neuro: Mild left-sided facial droop, left-sided 4+/5 as compared to 5/5 in the right side. No other focal deficits noted. Sensation intact. Pertinent labs and imaging reviewed Assessment and plan: 1. Stroke like symptoms CT head negative for acute process. CTA with right ICA stenosis 50%. Continue aspirin and statin. Plavix added by neurology. Telemetry monitoring. PT/OT/ST. Swallow eval. Echo with bubble pending. MRI brain pending. Neurology consulted. 2. History of PVD status post stenting Continue aspirin and statin 3. Hypertension Outside window for permissive hypertension therefore start amlodipine 5 mg daily. DVT prophylaxis with subcu heparin Objective - Vital Signs Vital signs: Vital Signs Temp 97.4 F L 07/31/23 11:54 Pulse 69 08/01/23 12:08 Resp 18 08/01/23 12:08 BP 165/77 08/01/23 12:08 Pulse Ox 96 08/01/23 12:08 FiO2 Intake & Output 07/31/23 08/01/23 08/01/23 18:59 06:59 18:59 Weight 111.992 kg - Labs CBC & Chem 7: 08/01/23 06:51 08/01/23 06:51 Labs: Abnormal Lab Results - Last 24 Hours (Table) 07/31/23 08/01/23 08/01/23 Range/Units 13:14 06:51 06:51 Lymphocytes # 0.7 L (1.0-4.8) k/uL Sodium 136 L (137-145) mmol/L Glucose 119 H (74-99) mg/dL
[2023-08-01] MEDS: amLODIPine 5 MG TAB PO SCH (13:01)
[2023-08-01 13:28] LABS: Chol/HDL Ratio 3.99 Ratio; LDL Cholesterol,Calculated 76.3 mg/dL (0.0-131.0); VLDL Calculation 17.42 mg/dL (5.00-40.00)
[2023-08-01] MEDS ORDERED: LORazepam 1 MG TAB PO PRN (18:36)
[2023-08-02] MEDS: HEPARIN SODIUM,PORCINE 5,000 UNIT/ML 1 ML VIAL SQ SCH ×3 (00:12→16:16)
[2023-08-02 06:54] LABS: Basophils % (A) 1 %; Eosinophils % (A) 1 %; HCT 44.5 % (39.0-53.0); HGB 14.8 gm/dL (13.0-17.5); Lymphocytes # (A) 0.7 k/uL (1.0-4.8); Lymphocytes % (A) 15 %; MCH 32.7 pg (25.0-35.0); MCHC 33.3 g/dL (31.0-37.0); MCV 98.4 fL (80.0-100.0); Mean Platelet Volume 8.1; Monocytes # (A) 0.4 k/uL (0-1.0); Monocytes % (A) 8 %; Neutrophils # (A) 3.5 k/uL (1.3-7.7); Neutrophils % (A) 73 %; Platelet Count 296 k/uL (150-450); RBC 4.52 m/uL (4.30-5.90); RDW 13.8 % (11.5-15.5); WBC 4.8 k/uL (3.8-10.6)
[2023-08-02 07:29] LABS: African American GFR (CKD) 70 (>60 ml/min/1.73 sqM); Anion Gap 9 mmol/L; Blood Urea Nitrogen 19 mg/dL (9-20); Carbon Dioxide 23 mmol/L (22-30); Chloride 105 mmol/L (98-107); Glucose 88 mg/dL (74-99); Non-African American GFR(CKD) 60 (>60 ml/min/1.73 sqM); Potassium 4.4 mmol/L (3.5-5.1); Sodium 137 mmol/L (137-145)
[2023-08-02] MEDS: amLODIPine 5 MG TAB PO SCH (07:57)
[2023-08-02] MEDS: ATORVASTATIN 40 MG TAB PO SCH (07:57)
[2023-08-02] MEDS: LORazepam 1 MG TAB PO PRN ×2 (07:57→16:16)
[2023-08-02] MEDS: CLOPIDOGREL 75 MG TAB PO SCH (07:57)
[2023-08-02] MEDS: ASPIRIN 81 MG PO SCH (07:57)
--- NOTE | 2023-08-02 08:01 | US ---
EXAMINATION TYPE: US abdomen limited DATE OF EXAM: 08/02/2023 COMPARISON: CTA with runoff July 05, 2023 CLINICAL INDICATION: Male, 73 years old with history of Liver lesion; Liver lesions visualized on CT TECHNIQUE: Multiple sonographic images of the right upper quadrant are obtained. FINDINGS: EXAM MEASUREMENTS: Liver Length: 17.1 cm Gallbladder Wall: 0.2 cm Right Kidney: 10.6 x 5.3 x 5.7 cm WRAPPER OPERATOR NOTES: Technical limitations due to large amount of overlying bowel gas Pancreas: Obscured by bowel gas Liver: complex anechoic lesion = 2.0 x 2.3 x 2.1cm Gallbladder: stones Evidence for sonographic Morales's sign: no CBD: Obscured by overlying bowel gas Right Kidney: anechoic area lower pole = 4.1 x 5.0 x 4.0cm. dense echogenic focus mid = 0.7cm Suboptimal study due to overlying bowel gas. Visualized pancreas within normal limits. Portions obscu red by overlying bowel gas. Visualized liver shows central 2.3 x 2.0 x 2.1 cm round nearly anechoic l esion corresponding to central hypodense lesion on CT. Intraluminal shadowing mobile gallstones. No a djacent fluid or wall thickening. Right kidney shows no hydronephrosis. There is 5.0 cm simple appear ing thin-walled cyst redemonstrated. Right-sided nonobstructing nephrolithiasis is redemonstrated. IMPRESSION: Suboptimal study. Nonspecific 2.3 cm central liver lesion redemonstrated. Solid mass or n eoplasm not excluded. Advise liver protocol CT or MRI to further evaluate.
--- NOTE | 2023-08-02 11:37 | US ---
EXAMINATION TYPE: US carotid duplex BILAT DATE OF EXAM: 08/02/2023 COMPARISON: CTA neck July 05, 2023 CLINICAL INDICATION: Male, 73 years old with history of acute stroke; left side weakness and facial d danni TECHNIQUE: Carotid duplex ultrasound examination. Indirect Doppler criteria was utilized. FINDINGS: EXAM MEASUREMENTS: RIGHT: Peak Systolic Velocity (PSV) cm/sec ----- Right CCA: 47.6 ----- Right ICA: 99.5 ----- Right ECA: 114.5 ICA/CCA ratio: 2.1 RIGHT: End Diastole cm/sec ----- Right CCA: 8.4 ----- Right ICA: 14.1 ----- Right ECA: 11.1 LEFT: Peak Systolic Velocity (PSV) cm/sec ----- Left CCA: 43.5 ----- Left ICA: 48.8 ----- Left ECA: 126.0 ICA/CCA ratio: 1.1 LEFT: End Diastole cm/sec ----- Left CCA: 6.0 ----- Left ICA: 11.3 ----- Left ECA: 9.7 VERTEBRALS (direction of flow): Right Vertebral: Antegrade Left Vertebral: Antegrade Rhythm: Arrhythmia CUSTOM FURRIER NOTES: Bilateral wall thickening. Plaque visualized in bilateral bulbs and left proximal CCA. No elevated velocities. Prominent focal plaque right carotid bulb level on grayscale images again seen. IMPRESSION: Atherosclerotic changes without hemodynamically significant stenosis clearly seen in [facility] internal carotid artery Criteria for Assigning % of Stenosis / Diameter reduction (Estimation based on the indirect measurements of the internal carotid artery velocities (ICA PSV). 1. Normal (no stenosis)=ICA PSV < 125 cm/s: ratio < 2.0: ICA EDV<40 cm/s. 2. Less than 50% stenosis=ICA PSV < 125 cm/s: ratio < 2.0: ICA EDV<40 cm/s. 3. 50 to 69% stenosis=ICA PSV of 125 to 230 cm/s: ration 2.0 ? 4.0: ICA EDV 40-100 cm/s. 4. Greater than 70% stenosis to near occlusion= ICA PSV > 230 cm/s: ratio > 4.0: ICA EDV > 100 cm/s. 5. Near occlusion= ICA PSV velocities may be low or undetectable: variable ratio and ICA EDV. 6. Total occlusion=unable to detect flow.
--- NOTE | 2023-08-02 11:46 | P.PN ---
Subjective Progress Note Date: 08/01/23 Patient was seen for a follow-up. Patient denies any new neurological symptoms. He is laying comfortably in the bed. Objective - Vital Signs Vital signs: Vital Signs Temp 97.9 F 08/01/23 14:53 Pulse 74 08/01/23 14:53 Resp 18 08/01/23 14:53 BP 186/95 08/01/23 14:53 Pulse Ox 98 08/01/23 14:53 FiO2 Intake & Output 07/31/23 08/01/23 08/01/23 18:59 06:59 18:59 Weight 111.992 kg 111.992 kg Other: Voiding Method External Catheter # Voids 1 - Exam Patient's examination is unchanged. Patient has a very mild left pronator drift. Still with ataxia for afaxld-wl-vlqd testing on the left. Also ataxia for arew-xf-bgsg testing. - Labs CBC & Chem 7: 08/02/23 06:04 08/02/23 06:04 Labs: Abnormal Lab Results - Last 24 Hours (Table) 08/01/23 08/01/23 Range/Units 06:51 06:51 Lymphocytes # 0.7 L (1.0-4.8) k/uL Sodium 136 L (137-145) mmol/L HDL Cholesterol 31.30 L (40.00-60.00) mg/dL Assessment and Plan Assessment: * Probable stroke, manifesting with mild left hemiparesis and left-sided ataxia. Patient's current NIH stroke scale is 4. Patient not a candidate for TPA as he came outside the window for TPA. * Elevated blood pressure, likely hypertension * Tobacco use * History of prostate cancer Plan: * MRI of the brain without contrast, evaluate for acute CVA * 2-D echo with bubble study to rule out PFO * CTA neck showed: 50% diameter reduction suggest proximal right ICA. CTA of the head is normal. * Consider vascular surgery consultation. * Fasting a.m. lipid panel with cholesterol 125, LDL 76, HDL 31 and triglycerides 87. Agree with starting Lipitor 40 mg daily. * Hemoglobin A1c 5.8 normal * Gradually optimize blood pressure control to normotensive level. * Patient has failed aspirin regimen. We will start Plavix 75 mg daily. After 21 days of DAPT, patient will stop aspirin and continue Plavix. * Neuro checks as per protocol. * Telemetry monitoring rule out any arrhythmia * Recommend complete tobacco cessation. * PT, OT, speech therapy * DVT prophylaxis: Heparin 5000 units subcu every 8 hours
--- NOTE | 2023-08-02 13:35 | P.PN ---
Subjective Progress Note Date: 08/02/23 This is a 73-year-old gentleman with a medical history significant for prostate cancer status post prostatectomy and radiation and PVD status post stenting who presented with left-sided weakness. He states around 11 PM last night he noticed he was dragging his left leg and had some incoordination and weakness in his left hand. He went to bed and awoke this morning with persistent symptoms therefore presented to the ED. He also states his noticed a mild left-sided facial droop. He denied any dysarthria or aphasia. He did endorse numbness in his toes which comes and goes intermittently and is chronic for him but no other sensory changes. No vision changes. Initial CT head was negative for acute process. CTA with 50% stenosis right ICA. He was initially hypertensive on presentation but now normotensive without treatment. Lipid panel T. Chol 123, LDL 76.3, HDL 31.3. A1c 5.8. 08/02 Patient was seen and examined. He reports improving left sided weakness. Currently on ASA 81 mg PO QD, Plavix 75 mg PO QD and Lipitor 40 mg PO QD. Carotid doppler shows atherosclerotic changes without hemodynamically significant stenosis. MRI brain and Echo pending. Liver US shows 2.3 cm central liver lesions, recommends liver protocol CT or MRI. CBC essentially unremarkable (lymphopenia). BMP unremarkable. General: non toxic, no distress, appears at stated age Derm: warm, dry Head: atraumatic, normocephalic, symmetric Eyes: EOMI, no lid lag, anicteric sclera Cardiovascular: S1S2 reg, no murmur Lungs: CTA bilateral, no rhonchi, no rales , no accessory muscle use Abdominal: soft, nontender to palpation, no guarding, no appreciable organomegaly Ext: no gross muscle atrophy, no edema, no contractures Neuro: no focal neuro deficits Psych: Alert, oriented, appropriate affect Based on my assessment of this patient, this patient meets a moderate complexity level of care. Patient has an acute diagnosis of CVA that poses a threat to life or bodily function. Probable CVA: ASA, Lipitor and statin as above. Telemetry monitoring. MRI brain, Echo pending. PT/OT/ST on board. Neurology on board. PVD: ASA, Plavix, statin as above. Liver lesions: Abd US as above. Will need MRI of the liver for further workup. HTN: Amlodipine 5 mg PO QD. CODE STATUS: FULL CODE DVT Prophylaxis: Heparin SQ. GI Prophylaxis: Designated medical POA if patient is not able to make medical decisions for them selves: I have reviewed the following search consultant notes: Neuro note. I have reviewed the results of the following tests: CBC, BMP, Liver US, CUS. I have ordered the following tests: MRI brain pending. Echo pending. I have discussed the care of this patient with the following independent historian: I have independently interpreted the following test below: I have discussed the management of this patient with the following physician: Objective - Vital Signs Vital signs: Vital Signs Temp 97.9 F 08/02/23 07:48 Pulse 66 08/02/23 07:48 Resp 16 08/02/23 07:48 BP 194/105 08/02/23 07:48 Pulse Ox 97 08/02/23 07:48 FiO2 Intake & Output 08/01/23 08/02/23 08/02/23 18:59 06:59 18:59 Weight 111.992 kg Other: Voiding Method External Catheter External Catheter # Voids 1 1 - Labs CBC & Chem 7: 08/02/23 06:04 08/02/23 06:04 Labs: Abnormal Lab Results - Last 24 Hours (Table) 08/01/23 08/02/23 Range/Units 06:51 06:04 Lymphocytes # 0.7 L (1.0-4.8) k/uL HDL Cholesterol 31.30 L (40.00-60.00) mg/dL
--- NOTE | 2023-08-02 14:50 | CA ---
Transthoracic Echo Report Name: Bassam Ferguson Age: 73 Gender: M : 1950 Exam Date: 08/02/2023 10:28 Exam Location: [facility] Ht (in): 72 Wt (lb): 246 Ordering Physician: Kurtis Vaca MD Attending/Referring Phys: Dump Truck Driver Jocelyne Robin [facility] Procedure CPT: Indications: stroke Cardiac Hx: Technical Quality: Technically difficult study Contrast 1: Definity Total Dose (mL): 5 Contrast 2: Agitated Saline Total Dose (mL): 5 MEASUREMENTS (Male / Female) Normal Values 2D ECHO LV Diastolic Diameter PLAX 4.8 cm 4.2 - 5.9 / 3.9 - 5.3 cm LV Systolic Diameter PLAX 3.5 cm IVS Diastolic Thickness 1.4 cm 0.6 - 1.0 / 0.6 - 0.9 cm LVPW Diastolic Thickness 1.2 cm 0.6 - 1.0 / 0.6 - 0.9 cm LV Relative Wall Thickness 0.5 LVOT Diameter 2.0 cm Ascending Aorta Diameter 3.7 cm M-MODE Aortic Root Diameter MM 2.9 cm LA Systolic Diameter MM 4.5 cm LA Ao Ratio MM 1.6 AV Cusp Separation MM 2.0 cm DOPPLER AV Peak Velocity 102.8 cm/s AV Peak Gradient 4.2 mmHg AV Mean Velocity 77.7 cm/s AV Mean Gradient 2.6 mmHg AV Velocity Time Integral 17.9 cm LVOT Peak Velocity 90.8 cm/s LVOT Peak Gradient 3.3 mmHg LVOT Velocity Time Integral 19.5 cm LVOT Stroke Volume 62.1 cm??? LVOT Stroke Volume Index 26.7 ml/m??? LVOT Cardiac Index 1826.4 cm???/min???m??? AV Area Cont Eq vti 3.5 cm??? AV Area Cont Eq pk 2.8 cm??? Mitral E Point Velocity 34.3 cm/s Mitral A Point Velocity 60.1 cm/s Mitral E to A Ratio 0.6 MV Deceleration Time 237.0 ms LV E' Lateral Velocity 6.6 cm/s Mitral E to LV E' Lateral Ratio 5.2 LV E' Septal Velocity 6.6 cm/s Mitral E to LV E' Septal Ratio 5.2 TR Peak Velocity 218.2 cm/s TR Peak Gradient 19.0 mmHg Right Atrial Pressure 3.0 mmHg Pulmonary Artery Systolic Pressu 22.0 mmHg Right Ventricular Systolic Press 22.0 mmHg FINDINGS Left Ventricle Moderately increased left ventricular wall thickness. Left ventricular cavity size normal. Low normal left ventricular systolic function with no obvious regional wall motion abnormalities. Left ventricular ejection fraction is estimated at 55%. Right Ventricle Right ventricle not well visualized. Right Atrium Right atrium not well visualized. Negative agitated saline bubble study for right to left shunt. Left Atrium Normal left atrial size. Mitral Valve Structurally normal mitral valve. No mitral regurgitation. Aortic Valve Trileaflet aortic valve. No aortic valve stenosis or regurgitation. Tricuspid Valve Structurally normal tricuspid valve. Trace tricuspid regurgitation. Pulmonic Valve Pulmonic valve not well visualized. Pericardium No pericardial effusion. Aorta Normal size aortic root and upper normal proximal ascending aorta. CONCLUSIONS Moderate increased left ventricular wall thickness Left ventricular ejection fraction 55% Negative bubble study for shunt No mitral regurgitation No pericardial effusion Previewed by: Dr. Gonzalo Huerta DO (Electronically Signed) Final Date: 02 August 2023 14:49
--- NOTE | 2023-08-02 19:42 | MR ---
EXAMINATION TYPE: MR brain wo con DATE OF EXAM: 08/02/2023 6:52 PM CLINICAL INDICATION:Male, 73 years old with history of stroke; PHH, Stroke COMPARISON: CT brain 07/31/2023. TECHNIQUE: Multi planar, multi sequence imaging was performed through the brain including: T1, T2, In version recovery, Diffusion weighted imaging, and gradient echo imaging. No gadolinium was given. FINDINGS: Restricted diffusion within the right yane. Remote images of the frontal lobes of T2 shine through and gliosis. Atrophy changes with proportional dilation of the ventricular systems. The vanegas- white junctions, ventricular system, and cisterns appear unremarkable. Scattered foci of high T2 sig nal intensity are seen within the periventricular white matter. Midline structures show no abnormalit y. The susceptibility weighted images do not reveal any evidence for micro-hemorrhage. The bone marrow signal is within normal limits. Paranasal sinuses and mastoid air cells: Mild scattered paranasal sinus disease. Trace right mastoid air cell effusion. Visualized orbits: Orbital contents are intact. IMPRESSION: 1. Acute/subacute CVA involving the right yane. 2. Nonspecific white matter changes, likely secondary to small vessel ischemic disease. 3. Remote injuries of the bilateral frontal lobes. 4. Mild paranasal sinus disease with trace right mastoid air cell effusion.
[2023-08-03] MEDS: HEPARIN SODIUM,PORCINE 5,000 UNIT/ML 1 ML VIAL SQ SCH ×2 (00:20→08:22)
[2023-08-03] MEDS: LORazepam 1 MG TAB PO PRN (04:10)
[2023-08-03] MEDS: ATORVASTATIN 40 MG TAB PO SCH (08:22)
[2023-08-03] MEDS: ASPIRIN 81 MG PO SCH (08:22)
[2023-08-03] MEDS: CLOPIDOGREL 75 MG TAB PO SCH (08:22)
[2023-08-03] MEDS ORDERED: amLODIPine 10 MG TAB PO SCH (09:00)
--- NOTE | 2023-08-03 09:36 | P.PN ---
Subjective Progress Note Date: 08/02/23 Patient was seen for a follow-up. Patient denies any new neurological symptoms. He is laying comfortably in the bed. Patient's grandchildren were present. Patient states that he walked with a walker, and using putty with his left hand for therapy. Objective - Vital Signs Vital signs: Vital Signs Temp 97.9 F 08/02/23 07:48 Pulse 64 08/02/23 16:00 Resp 16 08/02/23 16:00 BP 168/74 08/02/23 16:00 Pulse Ox 97 08/02/23 16:01 FiO2 Intake & Output 08/01/23 08/02/23 08/02/23 18:59 06:59 18:59 Output Total 200 Balance -200 Weight 111.992 kg Output: Urine 200 Other: Voiding Method External Catheter External Catheter External Catheter # Voids 1 1 # Bowel Movements 1 - Exam Patient's examination is unchanged. Patient has a left pronator drift about 45. He has left facial asymmetry, but better than yesterday. There is no slurred speech. Patient's grandchildren agrees that his speech is back to normal. On muscle strength testing, (right/left) deltoid 5/5-, biceps 5/5, triceps 5/5, dial screw assembler 5/4. Strength is normal in the lower limbs. Patient is complaining of numbness of the left little finger. Still with ataxia for [id number]-ev-wuuz testing on the left. Also ataxia for ztwm-[id number]-[id number] testing. - Labs CBC & Chem 7: 08/02/23 06:04 08/02/23 06:04 Labs: Abnormal Lab Results - Last 24 Hours (Table) 08/02/23 Range/Units 06:04 Lymphocytes # 0.7 L (1.0-4.8) k/uL Assessment and Plan Assessment: * Probable stroke, manifesting with mild left hemiparesis and left-sided ataxia. Patient's current NIH stroke scale is 4. Patient not a candidate for TPA as he came outside the window for TPA. * Elevated blood pressure, likely hypertension * Tobacco use * Dyslipidemia * History of prostate cancer Plan: * Await MRI of the brain without contrast, evaluate for acute CVA * 2-D echo with bubble study revealed moderate increased left ventricular wall thickness. Left-ventricular EF is 55%. Right Atrium not well visualized. Negative agitated saline bubble study for pctkn-sw-hrzs shunt. Normal left atrial size. * CTA neck showed: 50% diameter reduction suggest proximal right ICA. CTA of the head is normal. * Carotid Doppler revealed atherosclerotic changes without hemodynamically significant stenosis clearly seen in either ICA. Antegrade flow in both vertebral arteries. * Fasting a.m. lipid panel with cholesterol 125, LDL 76, HDL 31 and triglycerides 87. Agree with starting Lipitor 40 mg daily. * Hemoglobin A1c 5.8 normal * Gradually optimize blood pressure control to normotensive level. * Patient has failed aspirin regimen. We will start Plavix 75 mg daily. After 21 days of DAPT, patient will stop aspirin and continue Plavix. * Neuro checks as per protocol. * Telemetry monitoring rule out any arrhythmia * Recommend complete tobacco cessation. * PT, OT, speech therapy * DVT prophylaxis: Heparin 5000 units subcu every 8 hours Addendum: MRI of the brain revealed acute/subacute CVA involving the right yane. Nonspecific white matter changes, likely secondary to small vessel ischemic disease. Remote injuries of the bilateral frontal lobes. Mild paranasal sinus disease. I personally reviewed MRI, agree with the findings. Consider 30 day event monitor to rule out any paroxysmal atrial fibrillation. May consider inpatient rehabilitation.
[2023-08-03 11:34] VITALS: BP 159/85; PULSE 77; RESP 19; TEMP 98
--- NOTE | 2023-08-03 12:51 | P.DS ---
Providers Date of admission: 07/31/23 13:54 Expected date of discharge: 08/03/23 Attending physician: Yossi Hansen MD Consults: 07/31/23 13:53 Consult Physician Routine Consulting Provider: Nemo Byrnes Consult Reason/Comments: code stroke Do you want consulting provider notified?: Yes Primary care physician: [facility] Course: This is a 73-year-old gentleman with a medical history significant for prostate cancer status post prostatectomy and radiation and PVD status post stenting who presented with left-sided weakness. He states around 11 PM last night he noticed he was dragging his left leg and had some incoordination and weakness in his left hand. He went to bed and awoke this morning with persistent symptoms therefore presented to the ED. He also states his noticed a mild left-sided facial droop. He denied any dysarthria or aphasia. He did endorse numbness in his toes which comes and goes intermittently and is chronic for him but no other sensory changes. No vision changes. Initial CT head was negative for acute process. CTA with 50% stenosis right ICA. He was initially hypertensive on presentation but now normotensive without treatment. Lipid panel T. Chol 123, LDL 76.3, HDL 31.3. A1c 5.8. Started on ASA 81 mg PO QD, Plavix 75 mg PO QD and Lipitor 40 mg PO QD. Carotid doppler shows atherosclerotic changes without hemodynamically significant stenosis. MRI brain showed acute/subacute CVA right yane and remote injuries to bilateral frontal lobes. Echo showed EF 55% with no regional wall motion abnormalities, negative bubble study. Liver US shows 2.3 cm central liver lesions, recommends liver protocol CT or MRI. 08/03 Patient was seen and examined. His BP has been on this higher side during this hospitalization, we will increase Amlodipine to 10 mg PO QD. Continue ASA 81 mg PO QD, Plavix 75 mg PO QD and Lipitor 40 mg PO QD. Patient advised to discontinue ASA after 21 days and continue Plavix life long. He will need to see his PCP for further workup on his liver lesion with perhaps a liver protocol CT or MRI. Follow up with PCP within 1-2 days of discharge. Follow up with Neurology within 1 week of discharge. Follow up with Dr. Zamora within 1 week of discharge (already established care). Per Dr. Byrnes, plans to set up event monitor prior to discharge. Pertinent studies include Brain CT, CXR, CTA head and neck, Abd US, Echo, CUS, MRI brain. General: non toxic, no distress, appears at stated age Derm: warm, dry Head: atraumatic, normocephalic, symmetric Eyes: EOMI, no lid lag, anicteric sclera Cardiovascular: S1S2 reg, no murmur Lungs: CTA bilateral, no rhonchi, no rales , no accessory muscle use Abdominal: soft, nontender to palpation, no guarding, no appreciable organomegaly Ext: no gross muscle atrophy, no edema, no contractures Neuro: no focal neuro deficits Psych: Alert, oriented, appropriate affect Discharge Diagnosis: Acute CVA Carotid stenosis PVD Liver lesion HTN This complex discharge took 35 minutes to complete. Patient Condition at Discharge: Stable Plan - Discharge Summary Discharge Rx Participant: Yes New Discharge Prescriptions: New amLODIPine 10 mg PO DAILY #30 tab Clopidogrel [Plavix] 75 mg PO DAILY #30 tab Acetaminophen Tab [Tylenol] 650 mg PO Q6HR PRN tab PRN Reason: Mild Pain Or Fever > 100.5 Atorvastatin [Lipitor] 40 mg PO DAILY #30 tab Continue LORazepam 1 tab PO QID PRN PRN Reason: Anxiety Aspirin EC [Ecotrin Low Dose] 81 mg PO DAILY #30 tab Discharge Medication List LORazepam 1 tab PO QID PRN 08/01/23 [History] Acetaminophen Tab [Tylenol] 650 mg PO Q6HR PRN tab 08/03/23 [Rx] Aspirin EC [Ecotrin Low Dose] 81 mg PO DAILY #30 tab 08/03/23 [Rx] Atorvastatin [Lipitor] 40 mg PO DAILY #30 tab 08/03/23 [Rx] Clopidogrel [Plavix] 75 mg PO DAILY #30 tab 08/03/23 [Rx] amLODIPine 10 mg PO DAILY #30 tab 08/03/23 [Rx] Follow up Appointment(s)/Referral(s): Grant Forrest MD [Primary Care Provider] - 1-2 days (Spoke to sales receptionist. Office will call with appointment time. ) Gabriele Zamora DO [STAFF PHYSICIAN] - 1 Week (Keep scheduled appointment) Tabitha Bahena MD [Medical Doctor] - 1 Week (Neruologist-please call to schedule appointment) Patient Instructions/Handouts: Ischemic Stroke (DC) Activity/Diet/Wound Care/Special Instructions: Obtain a referral from PCP for outpatient physical and occupational therapy - you may then schedule an appointment with your company of choice Please follow up with your PCP within 1-2 days of discharge. You will need further workup of your liver lesions with either CT liver protocol or MRI liver. Follow up with Neurology and Dr. Zamora within 1 week of discharge. Follow up with Cardiology in 4 weeks to follow up results of event monitor (primary care will be getting the results) Continue aspirin and plavix for 21 days. After that, discontinue aspirin and continue plavix. Discharge Disposition: HOME SELF-CARE
== END 2023-08-03 14:12 | disposition home or self-care (01) | DRG 65 ==
LOC: EC 11:52 → 1SOBS 13:54 → 3SCARD 16:28
PROVIDERS: ADMIT Student in an Organized Health Care Education/Training Program; ATTEND Student in an Organized Health Care Education/Training Program
DX: I63.9 Cerebral infarction, unspecified (principal); G81.94 Hemiplegia, unspecified affecting left nondominant side; R27.0 Ataxia, unspecified; R29.810 Facial weakness; I10 Essential (primary) hypertension; R29.704 NIHSS score 4; Z87.891 Personal history of nicotine dependence; E78.5 Hyperlipidemia, unspecified; F17.290 Nicotine dependence, other tobacco product, uncomplicated; F32.A Depression, unspecified; F41.9 Anxiety disorder, unspecified; I44.0 Atrioventricular block, first degree; I65.21 Occlusion and stenosis of right carotid artery; K76.9 Liver disease, unspecified; Z79.02 Long term (current) use of antithrombotics/antiplatelets; Z85.46 Personal history of malignant neoplasm of prostate; Z79.82 Long term (current) use of aspirin; Z90.79 Acquired absence of other genital organ(s); Z95.828 Presence of other vascular implants and grafts
CPT/HCPCS: 36415; 70450; 70496; 70498; 70551; 71046; 76705; 80048; 80053; 80061; 83036; 84443; 84484; 85025; 85610; 85730; 93005; 93270; 93306; 93880; 94760; 96360; 96361; 96372; 99285

== ENCOUNTER 2024-02-29 09:56 | Day surgery (SDC) | payer MEDICARE, OTHER ==
[2024-02-28 09:26] VITALS: BMI 30.7
[~2024-02-29 09:56] MED LIST changes: -LACTATED RINGERS 1,000 ML IV SCH
[2024-02-29 10:27] VITALS: TEMP 97.7
[2024-02-29] MEDS: LACTATED RINGERS 1,000 ML IV SCH (10:34)
[2024-02-29] MEDS: IV FLUID CONTINUATION 1,000 ML IV ONE (10:35)
[2024-02-29] MEDS ORDERED: PROPOFOL 10 MG/ML 20 ML VIAL IV ONE (11:57)
--- NOTE | 2024-02-29 12:14 | P.PCN ---
Date of Procedure: 02/29/24 Procedure(s) Performed: BRIEF HISTORY: Patient is a 73-year-old pleasant white male scheduled for an elective colonoscopy as a part of evaluation by history of colon polyps. Last colonoscopy was 3 years ago. PROCEDURE PERFORMED: Colonoscopy. PREOPERATIVE DIAGNOSIS: History of colon polyps. IV sedation per Anesthesia. PROCEDURE: After informed consent was obtained, the patient, was brought into the endoscopy unit. IV sedation was administered by Anesthesia under continuous monitoring. Digital rectal examination was normal. Initially the Olympus CF-160 flexible video colonoscope was then inserted in the rectum, gradually advanced into the cecum without any difficulty. Careful examination was performed as the scope was gradually being withdrawn. Ileocecal valve and the appendiceal orifice were visualized and appeared normal. Prep was fair. Mucosa of the cecum, ascending colon, transverse colon, descending colon, sigmoid colon, and rectum appeared normal. Retroflexion was performed in the rectum and no lesions were seen. The patient tolerated the procedure well. IMPRESSION: Normal-appearing colon from rectum to cecum with no evidence of colorectal neoplasia. RECOMMENDATIONS: Findings of this examination were discussed with the patient as well as his family. He was advised to have repeat colonoscopy in 5 years because of the prior history of colon polyps..
[2024-02-29 12:20] VITALS: RESP 16
[2024-02-29 12:48] VITALS: BP 153/83; PULSE 51
== END 2024-02-29 13:15 | disposition home or self-care (01) ==
LOC: ORWHC2ENDO 09:56
PROVIDERS: ATTEND Internal Medicine Gastroenterology
DX: Z12.11 Encounter for screening for malignant neoplasm of colon (principal); I10 Essential (primary) hypertension; E78.5 Hyperlipidemia, unspecified; F41.9 Anxiety disorder, unspecified; F32.A Depression, unspecified; L98.499 Non-pressure chronic ulcer of skin of other sites with unspecified severity; I73.9 Peripheral vascular disease, unspecified; Z86.010 Personal history of colon polyps; Z86.73 Personal history of transient ischemic attack (TIA), and cerebral infarction without residual deficits; Z87.891 Personal history of nicotine dependence; Z79.02 Long term (current) use of antithrombotics/antiplatelets; Z79.899 Other long term (current) drug therapy
CPT/HCPCS: J2704; G0105

== ENCOUNTER 2025-01-02 10:05 | Day surgery (SDC) | payer MEDICARE, OTHER ==
[~2025-01-02 10:05] MED LIST changes: +ALPRAZolam 0.25 MG TAB PO PRN; +ALPRAZolam 0.5 MG TAB PO PRN; +HEPARIN SODIUM,PORCINE (1 ML) 2,500 UNIT in SODIUM CHLORIDE 0.9% 250 ML IRRIGATION PRN; +HEPARIN SODIUM,PORCINE 10,000 UNIT in SODIUM CHLORIDE 0.9% 1,000 ML IRRIGATION PRN; -LIDOCAINE 1% (10MG/ML) FOR IV START INTRADERMA PRN; +NITROGLYCERIN SL TABS 0.4 MG TAB SUBLINGUAL PRN
[2025-01-02] MEDS: IV FLUID CONTINUATION 1,000 ML IV ONE (11:00)
[2025-01-02 11:24] LABS: Basophils # (A) 0.05 10*3/uL (0.00-0.10); Basophils % (A) 0.7 %; Eosinophils # (A) 0.17 10*3/uL (0.04-0.35); Eosinophils % (A) 2.2 %; HCT 40.8 % (39.6-50.0); HGB 14.4 g/dL (13.0-17.0); MCH 32.3 pg (27.0-32.0); MCHC 35.3 g/dL (32.0-37.0); MCV 91.5 fL (80.0-97.0); Mean Platelet Volume 10.1 fL (9.5-12.2); Monocytes # (A) 0.82 10*3/uL (0.20-1.00); Monocytes % (A) 10.7 %; Neutrophils # (A) 5.29 10*3/uL (1.80-7.70); Neutrophils % (A) 69.1 %; Platelet Count 259 10*3/uL (140-440); RBC 4.46 10*6/uL (4.40-5.60); RDW 13.5 % (11.5-14.5); WBC 7.65 10*3/uL (4.50-10.00)
[2025-01-02 11:25] VITALS: TEMP 97.8
[2025-01-02 11:34] LABS: African American GFR (CKD) 73 (>60 ml/min/1.73 sqM); Anion Gap 9 mmol/L; Blood Urea Nitrogen 19 mg/dL (9-20); Calcium 9.1 mg/dL (8.4-10.2); Carbon Dioxide 21 mmol/L (22-30); Chloride 107 mmol/L (98-107); Glucose 92 mg/dL (74-99); Non-African American GFR(CKD) 63 (>60 ml/min/1.73 sqM); Sodium 137 mmol/L (137-145)
[2025-01-02 11:43] LABS: Potassium 4.9 mmol/L (3.5-5.1)
[2025-01-02] MEDS: ASPIRIN 325 MG TAB PO STA (11:43)
[2025-01-02] MEDS: ATORVASTATIN 80 MG TAB PO STA (11:43)
[2025-01-02] MEDS: SODIUM CHLORIDE 0.9% 1,000 ML in EMPTY BAG 1 BAG IV SCH (11:44)
[2025-01-02] MEDS: HEPARIN SODIUM (1,000 UNIT/ML) 1,000 UNIT in SODIUM CHLORIDE 0.9% 1,000 ML IRRIGATION ONE (12:10)
[2025-01-02] MEDS: HEPARIN SODIUM,PORCINE (1 ML) 2,500 UNIT in SODIUM CHLORIDE 0.9% 250 ML IRRIGATION ONE (12:10)
[2025-01-02] MEDS: fentaNYL (PF) 50 MCG/ML 2 ML AMP IVP ONE (12:23)
[2025-01-02] MEDS: MIDAZOLAM 2 MG/2 ML VIAL IVP ONE (12:23)
[2025-01-02] MEDS: LIDOCAINE 1% INJ 10MG/ML (20 ML MDV) SQ ONE (12:24)
[2025-01-02] MEDS: VERAPAMIL SYRINGE (5 MG/10 ML) INTRAARTER ONE (12:26)
[2025-01-02] MEDS: HEPARIN SODIUM 1,000 UN/ML (10ML VL) IVP ONE (12:32)
[2025-01-02] MEDS: IOPAMIDOL-370 100ML BTL INJ ONE (12:42)
--- NOTE | 2025-01-02 13:06 | P.CARDCATH ---
Date of Procedure: 01/02/25 Description of Procedure: DIAGNOSTIC CORONARY ANGIOGRAPHY and LEFT HEART CATH REPORT PROCEDURES PERFORMED: Left heart catheterization Selective coronary angiography Moderate conscious sedation 20 mins [Ultrasound assisted] Right radial access INDICATION: Abnormal stress test, dyspnea on exertion BRIEF HPI: 74-year-old with past medical history of PAD, CVA, smoking, COPD, chronic back pain presented to cardiology office because of his recent history of CVA and dyspnea on exertion symptoms. He is also limited in his physical capacity because of chronic back pain. We performed an echocardiogram and a stress test. Echocardiogram showed preserved LVEF, sclerotic aortic valve with no major valvular structure abnormalities no regional wall motion abnormality. We performed a Lexiscan nuclear stress test which showed reversible moderate- sized moderate intensity perfusion defect in the inferior wall. For this we performed a cardiac catheterization procedure. CONSENT: I have explained the procedural steps of above-mentioned procedures in layman's terms to the patient. I discussed the risks (including but not limited to stroke, emergent vascular or cardiac surgery or ), benefits and alternative therapies for the above-mentioned procedure. I discussed the risks of sedation/analgesia and blood product administration (if indicated). The patient has indicated understanding and acceptance of these risks. Conscious Sedation: Patient's ECG, heart rate, blood pressure, pulse oximetry w ere monitored throughout the duration of procedure under my direct supervision. 1 mg Versed and 50 mcg Fentanyl were used for induction of moderate conscious sedation. Total duration of moderate concious sedation 20 minutes. PROCEDURAL DETAILS: Patient was prepped and draped in sterile fashion. 1% lidocaine was infiltrated over the right radial artery. Right radial access was obtained via modified seldinger technique. [Ultrasound was used for radial access]. Medications: 5mg of verapamil was administed in the radial sheet. 6000 Units of Heparin was administed once the catheter reached the aortic root Wires and Catheter used: J wire was advanced under fluroscopy to get to aortic root. 5 bulgarian JR 4 diagnostic catheter was utilized obtain left ventricular pressure and pressure gradint across aortic valve. 5 bulgarian JR 4 diagnostic catheter was used to selectively engage the right coronary ostium. 5 bulgarian JL 3.5 diagnostic catheter was utilized to selectively engage the left coronary ostium. Angiographic images were reviewed in detail. Catheter and wire were removed. Radial sheet was flushed. The right radial sheath was removed and a TR band was placed. Patent hemostasis was achieved. The patient tolerated the procedure well. Patient was transported back to the post catheterization holding area in stable condition. TECHNICAL DETAILS Total radiation: 551 mGy Total contrast used: Isovue [60 ml] Complications: [none] Estimated Blood loss: less than 15 ml HEMODYNAMICS: Aortic Pressure: 155/68 mmHg. LV pressure: 158/5 mmHg. LVEDP 11 mmHg. There was no significant gradient across the aortic valve. SELECTIVE CORONARY ARTERIOGRAPHY: LEFT MAIN: The left main is short and large caliber vessel. It bifurcates into the LAD and circumflex. Left main appears angiographically normal. LEFT ANTERIOR DESCENDING CORONARY ARTERY: LAD is large caliber and wraps around the apex. Proximal LAD appears angiographically patent. 10 to 20% diffuse tubular calcific disease. Mid LAD has 50 to 60% diffuse calcific disease. Distal part of mid LAD has 99% subtotal occlusion with FILIBERTO-3 flow. Distal LAD has 100% calcific occlusion. Distal LAD which supplies the apex gets filled by the left left collaterals which has FILIBERTO II flow. Proximal LAD gives rise to a large septal branch appears angiographically patent. Proximal LAD also gives rise to a diagonal 1 branch which is medium caliber. Mid diagonal 1 has 40 to 50% disease distal to this disease diagonal bifurcating into 2 small branches which is moderate diffuse disease. LEFT CIRCUMFLEX CORONARY ARTERY: LCx nondominant. Large caliber. Proximal LCx has mild calcific disease. Proximal LCx gives rise to a OM1 branch which is large caliber and has 30% disease in proximal segment. It otherwise is patent with mild luminal irregularities. After giving OM branch mid LCx has 40% calcific disease. Mid LCx is otherwise patent and continues to give the second OM branch distally which is angiographically patent. LCx gives rise to [id number] collaterals to PDA and PL branches. RIGHT CORONARY ARTERY: RCA appears to be dominant vessel however small caliber 2.5 mm. Proximal RCA appears patent. Mid RCA has diffuse 80% calcific disease. Distal RCA is 100% occluded. IMPRESSION: 100% occluded distal LAD with left to left collaterals filling distal LAD 100% occluded distal RCA with [id number] collaterals filling PDA and PL branches 99% subtotal occluded mid LAD Moderate diffuse calcific disease otherwise. Normal LVEDP Labs 07/2023, A1c 5.8, LDL 76, HDL 31, TG 87, TSH 1.7 PLAN: Patient is denying any symptoms of chest pain chest pressure at this time. He reports that his functional capacity is limited because of his back pain and at his present level of activity is not having any significant shortness of breath that is limiting him to carry out his activities of daily living. Therefore we will treat him with optimized and maximal antianginal therapy before considering intervention. Patient understands this and would like to proceed with medical management before doing interventions. Plavix 75, Xarelto 2.5 mg twice daily Rosuvastatin 20 mg, Imdur 50 mg, amlodipine 10 mg Add Ranexa 500 mg twice daily, losartan 25 mg daily Follow-up in cardiology office Performing Physician Janes Buchanan MD, FACC, RPVI Thank you for allowing [facility] to participate in this patient's care. Feel free to reach out in case of any followup questions.
[2025-01-02 15:30] VITALS: RESP 16
[2025-01-02 17:08] VITALS: BP 138/66; PULSE 52
== END 2025-01-02 16:17 | disposition home or self-care (01) ==
LOC: CATHCVL 10:05
PROVIDERS: ATTEND Student in an Organized Health Care Education/Training Program
DX: I25.10 Atherosclerotic heart disease of native coronary artery without angina pectoris (principal); I25.82 Chronic total occlusion of coronary artery; G89.29 Other chronic pain; J44.9 Chronic obstructive pulmonary disease, unspecified; I73.9 Peripheral vascular disease, unspecified; I65.23 Occlusion and stenosis of bilateral carotid arteries; Z79.01 Long term (current) use of anticoagulants; Z79.02 Long term (current) use of antithrombotics/antiplatelets; Z79.899 Other long term (current) drug therapy; Z86.73 Personal history of transient ischemic attack (TIA), and cerebral infarction without residual deficits; Z87.891 Personal history of nicotine dependence
CPT/HCPCS: 93458; 80048; 85025; 99152; C1894; C1769; J2250; J1644 ×2; J2003; J3010; Q9967